=== PATIENT | female | born 1965 | race Caucasian/White ===

== ENCOUNTER 2020-04-15 11:09 | Emergency (ER) | payer OTHER, SELFPAY ==
[2020-04-15 11:31] VITALS: BP 150/80; PULSE 78; RESP 24; TEMP 38.1; O2SAT 99
--- NOTE | 2020-04-15 12:08 | ED.URI ---
HPI - URI/Sore Throat General Chief Complaint: Upper Respiratory Infection Stated Complaint: SINUS/FEVER/SORE THROAT/COUGH/LOW BACK PAIN Time Seen by Provider: 04/15/20 11:32 Source: patient and RN notes reviewed Mode of arrival: ambulatory Limitations: no limitations History of Present Illness HPI Narrative: Patient presents today complaining of 4-day history of congestion, sore throat, cough, chills and sweats, sinus pressure and headache, with decreased sense of taste and low back pain. Denies fever, shortness of breath, loss of smell, nausea, vomiting, diarrhea. She has been taking ibuprofen and cold medication at home with mild relief. She had a COVID-19 test done 3 days ago that was negative. No history of asthma or COPD. She presents today with her son with similar symptoms. MD elicited complaint: cough, sore throat and nasal congestion Related Data Home Medications Medication Instructions Recorded Confirmed No Home Medications 04/15/20 04/15/20 Allergies Allergy/AdvReac Type Severity Reaction Status Date / Time No Known Allergies Allergy Unverified 04/15/20 11:17 Review of Systems Review of Systems: Narrative: CONSTITUTIONAL: Denies body aches, fever. + Chills and sweats EYES: Denies visual changes, redness, or discharge. ENT: Denies rhinorrhea, or otalgia. + Nasal congestion, decreased sense of taste, sinus pressure, sore throat CARDIOVASCULAR: Denies chest pain, palpitations, or edema. RESPIRATORY: Denies dyspnea.+Cough GASTROINTESTINAL: Denies abdominal pain, nausea, vomiting, or diarrhea. GENITOURINARY: Denies dysuria or hematuria. SKIN: Denies rash, itching, or wounds. MUSCULOSKELETAL: Denies joint pain, or myalgia. + Low back pain NEUROLOGIC: Denies numbness, tingling, or weakness. + Headache PSYCH: Denies depression or anxiety. PMFSH Comments At time of signature, I have reviewed and agree with nursing past medical, surgical, social and family history unless otherwise noted. Please see nursing chart for further information. There is no relevant family history pertinent to the presenting complaint Exam Narrative: Exam Narrative: GENERAL: Mildly ill-appearing, well-nourished, and in no acute distress. HEAD: Normocephalic, atraumatic. EYES: EOMI. No redness or drainage. Conjunctivae normal. ENT: Mucous membranes pink and moist. + nasal congestion. No rhinorrhea. TMs normal bilaterally. Throat normal. Uvula midline. NECK: Normal AROM. Supple. Bilateral anterior and left posterior cervical chain lymphadenopathy. CHEST: No respiratory distress. Clear to auscultation. HEART: Regular rate and rhythm. No murmur appreciated. Normal peripheral pulses. EXTREMITIES: Normal range of motion. No edema. SKIN: Warm, dry, no rash. Capillary refill normal. Normal skin turgor. NEURO: No focal deficits. Alert and oriented x3. Gait steady. PSYCH: Normal affect. No signs of depression or anxiety. Course Vital Signs Vital signs: Vital Signs Temperature 100.5 F H 04/15/20 11:31 Pulse Rate 78 04/15/20 11:31 Respiratory Rate 24 H 04/15/20 11:31 Blood Pressure 150/80 H 04/15/20 11:31 Pulse Oximetry 99 04/15/20 11:31 Temperature 100.5 F H 04/15/20 11:31 Pulse Rate 78 04/15/20 11:31 Respiratory Rate 24 H 04/15/20 11:31 Blood Pressure 150/80 H 04/15/20 11:31 Pulse Oximetry 99 04/15/20 11:31 Reviewed. Pt has been instructed to follow up with her PCP regarding her elevated blood pressure today. MDM - URI/Sore Throat MDM Narrative Medical decision making narrative: Patient presents today with symptoms of COVID-19 including loss of taste. Even though patient's rapid Covid test is negative, I feel it very likely that she has COVID-19. Anticipatory guidance has been given as well as instructions for quarantine. Differential Diagnosis Differential diagnosis: Likely upper respiratory infection, otitis media, sinusitis, viral infection, bronchitis, pharyngitis and other (COVID-19, stre
== END 2020-04-15 12:23 | disposition home or self-care (01) ==
PROVIDERS: Emergency Provider Nurse Practitioner; PCP Internal Medicine
DX: U07.1 COVID-19 (principal); G47.30 Sleep apnea, unspecified
CPT/HCPCS: 87426; 99213; C9803; G0463

== ENCOUNTER 2021-09-09 16:26 | Emergency (ER) | payer OTHER, SELFPAY ==
[2021-09-09 16:34] VITALS: BP 160/83; PULSE 95; RESP 16; TEMP 37.7; O2SAT 99
--- NOTE | 2021-09-09 16:50 | ED.URI ---
HPI - URI/Sore Throat General Chief Complaint: Upper Respiratory Infection Stated Complaint: fever,cough,body aches History of Present Illness HPI Narrative: Patient is a 55-year-old female who presents to the urgent care via POV for evaluation of viral symptoms that have been present since this morning. Patient reports experiencing body aches, frontal headache, low back pain, productive cough, bilateral ear pain, and swollen glands. She reports her sputum production is small in quantity and clear in color. DayQuil provides some relief. Being awake and moving around worsens symptoms. She reports her son was ill a few days ago with nausea, vomiting, and diarrhea although she denies the symptoms. Patient is fully vaccinated against COVID although not influenza. Related Data Allergies Allergy/AdvReac Type Severity Reaction Status Date / Time No Known Allergies Allergy Verified 09/09/21 16:34 Review of Systems Review of Systems: Denies history of COPD, bronchitis, asthma, and pneumonia. Denies current/past tobacco use. Pertinent negatives: fever, sweats, chills, change in appetite, fatigue, skin color changes, severe persistent headaches, nasal congestion/discharge, dizziness, sinus problems, ear drainage, chest pain, heart murmurs, heart palpitations, shortness of breath, wheezing, cyanosis, hemoptysis, hoarseness, orthopnea, drooling, difficulty swallowing, pleuritic pain, voice changes PMFSH Comments I have reviewed and agree with the patient's past medical, surgical, social, and family hx as documented by the RN. There is no relevant family history pertinent to the presenting complaint. Exam Narrative: GENERAL: Well-appearing, well-nourished, and in no acute distress. Appears uncomfortable. HEAD: Normocephalic, atraumatic. No sinus tenderness or facial swelling appreciated. EYES: PERRLA and EOMI. No evidence of erythema, swelling, or drainage. ENT: Bilateral external ears and ear canals normal. Bilateral TMs are retracted otherwise normal. No TM perforation. Nares clear, no rhinorrhea or epistaxis. Bilateral turbinates without erythema/ swelling. Mucous membranes moist and pink. Uvula is midline. Mild erythema and subtle swelling noted to posterior pharynx otherwise normal. Breath odor and voice normal. NECK: Supple. No Lymphadenopathy or nuchal rigidity appreciated. CHEST: Bilateral lung wallace are clear to auscultation. No respiratory distress. No evidence of cough or pleuritic cp upon examination. HEART: Regular rate and rhythm. No murmur, gallop, or rub heard. EXTREMITIES: Normal range of motion. No edema. SKIN: Warm, dry, no rash. NEURO: No focal deficits. Alert and oriented x3. Course Course Level of Care: Express Care Visit Vital Signs Vital signs: Vital Signs Temperature 99.9 F H 09/09/21 16:34 Pulse Rate 95 09/09/21 16:34 Respiratory Rate 16 09/09/21 16:34 Blood Pressure 160/83 H 09/09/21 16:34 Pulse Oximetry 99 09/09/21 16:34 Temperature 99.9 F H 09/09/21 16:34 Pulse Rate 95 09/09/21 16:34 Respiratory Rate 16 09/09/21 16:34 Blood Pressure 160/83 H 09/09/21 16:34 Pulse Oximetry 99 09/09/21 16:34 MDM - URI/Sore Throat Differential Diagnosis Differential diagnosis: Likely upper respiratory infection, otitis media, sinusitis, viral infection, bronchitis, influenza, pharyngitis and other Lab Data Lab results narrative: Rapid strep negative; rapid COVID-negative Critical Care Time Critical Care Time Critical Care Time: No Discharge Plan Discharge Clinical Impression: Upper respiratory infection Patient Disposition: Home, Self-Care Condition: Stable Instructions: Upper Respiratory Infection (ED) Additional Instructions: See discharge instructions for detailed information. Rapid strep and COVID test negative Take all prescription medication only as prescribed. No [id number] anti-inflammatory such as Aleve, ibuprofen, Advil while t
== END 2021-09-09 17:06 | disposition home or self-care (01) ==
PROVIDERS: Emergency Provider Nurse Practitioner Family; PCP Internal Medicine
DX: J06.9 Acute upper respiratory infection, unspecified (principal); Z20.822 Contact with and (suspected) exposure to COVID-19; G47.30 Sleep apnea, unspecified
CPT/HCPCS: 87081; 87426; 87880; 99213; C9803; G0463

== ENCOUNTER 2021-10-25 16:56 | Emergency (ER) | payer OTHER, SELFPAY ==
--- NOTE | ~2021-10-25 | CT_ITS ---
EXAMINATION: CT abdomen pelvis w con DATE: 10/25/2021 19:03 INDICATION: Right upper quadrant pain. Lump on vagina. TECHNIQUE: Computed tomography (CT) of the abdomen and pelvis was performed with 100 cc Omnipaque 350 intravenous contrast. The dose-length product was 1522.22 mGy-cm. Automated exposure control and ite rative reconstruction technique were employed. COMPARISON: None. FINDINGS: Lung bases unremarkable. Heart size normal. No significant pleural or pericardial effusion. Small hiatal hernia. No significant vascular abnormality. No lymphadenopathy. There is an enlarged f ibroid uterus. There is a 1.9 cm Bartholin cysts located at the vaginal introitus. No lymphadenopathy. The liver, spleen, pancreas, right adrenal gland and kidneys are unremarkable. Th ere is a 1.6 cm left adrenal mass likely benign adenoma. Gallbladder is present. Nonobstructive bowel gas pattern. Normal appendix. Nonobstructive bowel pattern. No abnormal pelvic masses or fluid colle ctions. No acute osseous abnormality. No free air or free fluid. IMPRESSION: 1. No acute abdominal abnormality. 2: Bartholin cyst measuring 1.9 cm located at the right vaginal introitus. 3: Enlarged fibroid uterus. Reviewed, dictated and finalized at location A.
[2021-10-25 17:02] VITALS: BP 151/99; PULSE 98; RESP 20; TEMP 36.8; O2SAT 100
--- NOTE | 2021-10-25 18:29 | ED.GENADULT ---
HPI - General Adult General Chief complaint: Unspecified Stated complaint: back and pelvic pain Time Seen by Provider: 10/25/21 18:07 Source: patient Mode of arrival: ambulatory Limitations: no limitations History of Present Illness HPI narrative: Patient is a 55 y/o female who presents to the ED with c/o multiple complaints. Patient reports she has had lower back pain for the past 1 month. She denies any known injury or recent heavy lifting. She has been taking ibuprofen for this and states pain is improved overall. She also reports having intermittent lower abdominal cramping and pain in her right upper quadrant for the last 1 month. Pain comes and goes, mild in nature. No pain today. Yesterday, while patient was taking a shower, she noticed a small lump in her right lower labia. No significant pain, just feels slightly swollen. She states she had 2 aunts with history of vaginal and rectal cancer, which made her concerned. She states she mostly came to the ER today for evaluation of the vaginal lump. She was unable to make an appointment with her [employer]. Denies nausea, vomiting, diarrhea, constipation, rectal bleeding, vaginal bleeding, dysuria, hematuria, fever, chills. Related Data Home Medications Medication Instructions Recorded Confirmed No Home Medications 10/25/21 10/25/21 Allergies Allergy/AdvReac Type Severity Reaction Status Date / Time No Known Allergies Allergy Verified 09/09/21 16:34 Review of Systems Review of Systems: CONSTITUTIONAL: Denies fever, chills, or sweats. CARDIOVASCULAR: Denies chest pain. RESPIRATORY: Denies dyspnea. GASTROINTESTINAL: Reports lower ABD cramping, RUQ pain. Denies constipation, rectal bleeding, nausea, vomiting, or diarrhea. GENITOURINARY: Reports lump to R lower vaginal region. Denies vaginal bleeding, dysuria, or hematuria. MUSCULOSKELETAL: Reports lower back pain. All systems reviewed & are unremarkable except as noted in HPI and below PMFSH Past Medical History Medical History No pertinent past medical history Surgical History Surgical History (Updated 10/25/21 @ 18:59 by Katy Carmona PA-C) History of section Social History Social History (Updated 10/25/21 @ 18:59 by Katy N. Skau, PA-C) Smoking status: Never smoker Exam Narrative: GENERAL: Well appearing, well-nourished, non-toxic, in no acute distress. HEAD: Normocephalic, atraumatic. NECK: Supple. No adenopathy, no masses. RESPIRATORY: Airway patent, respirations nonlabored. Clear to auscultation bilaterally, no rales, rhonchi, wheezing. CARDIOVASCULAR: Regular rate and rhythm without murmurs, rubs, or gallops. Peripheral pulses 2+ and equal bilaterally. ABDOMINAL: Soft, diffuse tenderness in lower abdomen, tenderness in RUQ and epigastrium, nondistended, no hepatosplenomegaly. Normoactive BS. PELVIC: Normal external genitalia. Small pea-sized lump in R lower inner vulvar region, in the area of Bartholin's gland. Minimally tender to palpation. No significant fluctuance appreciated. No drainage. No vaginal discharge. No other genital lesions. MUSCULOSKELETAL: Moves all extremities. Strength/ROM intact without gross deformities. Minimal lower lumbar tenderness bilaterally, no bony deformities or palpable step-offs. SKIN: Warm, dry, normal color. No rashes. NEURO: A&O X3. Speech clear. Cranial nerves II-XII grossly intact. Steady gait. No ataxic movements. PSYCHIATRIC: Appropriate mood and affect. Normal interaction. Course Vital Signs Vital signs: Vital Signs Temperature 98.2 F 10/25/21 17:02 Pulse Rate 98 10/25/21 17:02 Respiratory Rate 20 10/25/21 17:02 Blood Pressure 151/99 H 10/25/21 17:02 Pulse Oximetry 100 10/25/21 17:02 Oxygen Delivery Room Air 10/25/21 17:02 Temperature 98.2 F 10/25/21 17:02 Pulse Rate 72 10/25/21 20:11 Respiratory Rate 18 10/25/21 20:11 Blood Pressure 154/70 H 10/25/21
[2021-10-25 18:37] LABS: Basophils Absolute Auto 0.1 K/mm3 (0.0-0.1); Basophils Percent Auto 0.7 % (0.2-1.2); Eosinophils Absolute Auto 0.3 K/mm3 (0-0.3); Eosinophils Percent Auto 2.5 % (0-4.4); Hematocrit 42.9 % (37.0-47.0); Hemoglobin 14.3 g/dL (12.0-15.0); Immature Granulocyte Absolute 0.04 K/mm3 (0.00-0.031); Immature Granulocyte Percent A 0.3 % (0-0.5); Lymphocytes Absolute Auto 3.19 K/mm3 (0.9-3.2); Lymphocytes Percent Auto 26.3 % (18.3-44.2); Mean Corpuscular HGB Conc 33.3 g/dl (32-36); Mean Corpuscular Hemoglobin 28.9 pg (26-34); Mean Corpuscular Volume 86.7 fl (80-100); Mean Platelet Volume 9.8 fl (7.4-10.4); Monocytes Absolute Auto 0.8 K/mm3 (0.1-0.6); Monocytes Percent Auto 6.4 % (2.6-8.5); Neutrophils Absolute Auto 7.7 K/mm3 (1.3-6.7); Neutrophils Percent Auto 63.8 % (45.5-73.1); Platelet Count Result 346 k/mm3 (150-375); Red Blood Count 4.95 M/mm3 (4.2-5.4); Red Cell Distribution Width 13.2 % (11.5-14.5); White Blood Count 12.1 K/mm3 (4.5-10.0)
[2021-10-25 18:38] LABS: Appearance Urine Clear (Clear); Bilirubin Urine Negative (Negative); Blood Urine 2+ (Negative); Color Urine Yellow (Yellow); Glucose Urine UA Negative (Negative); Ketones Urine 1+ mg/dL (Negative); Leukocyte Esterase Ur Negative LEU/UL (Negative); Nitrate Urine Negative (Negative); Protein Urine Negative (Negative); Specific Grav Ur >= 1.030 (1.001-1.035); Urobilinogen Urine 0.2 mg/dL (<2.0)
[2021-10-25 18:47] LABS: Alanine Aminotransferase 18 U/L (6-35); Alkaline Phosphatase 69 U/L (38-126); Anion Gap 12 mmol/L (8-16); Aspartate Amino Transferase 23 U/L (14-36); Bilirubin,Total 0.4 mg/dL (0.2-1.3); Blood Urea Nitrogen 15 mg/dL (7-17); Calcium 9.7 mg/dL (8.4-10.2); Carbon Dioxide 24 mmol/L (22-30); Chloride 100 mmol/L (98-107); Estimated Glomerular Filt Rate > 60; Glucose 143 mg/dL (65-110); Lipase 76 U/L (23-300); Potassium 3.6 mmol/L (3.4-5.0); Sodium 136 mmol/L (137-145)
[2021-10-25 18:59] LABS: Mucus Urine Rare /lpf; RBC Urine 0-2 /hpf (0-2); Squamous Epithelial Cell Urine Few /hpf (Few); WBC Urine 0-3 /hpf
[2021-10-25 19:01] LABS: Add Urine Microscopic? YES
[2021-10-25 20:11] VITALS: BP 154/70; PULSE 72; RESP 18; O2SAT 96
== END 2021-10-25 21:58 | disposition home or self-care (01) ==
PROVIDERS: Physician Assistant; Emergency Provider Emergency Medicine; PCP Internal Medicine
DX: M54.50 Low back pain, unspecified (principal); N75.0 Cyst of Bartholin's gland; D25.9 Leiomyoma of uterus, unspecified
CPT/HCPCS: 36415; 74177; 80053; 81001; 83690; 85025; 99284; Q9967

== ENCOUNTER → 2021-11-05 14:57 | Outpatient (CLI) | payer OTHER, SELFPAY ==
--- NOTE | ~2021-11-05 | US_ITS ---
EXAMINATION: US pelvic complete w TV DATE: 11/05/2021 15:27 INDICATION: Excessive and frequent menstruation TECHNIQUE: Multiple transabdominal and endovaginal sonographic images of the pelvis were obtained. COMPARISON: CT, 10/25/2021 FINDINGS: The uterus measures 13.6 x 10.0 x 8.4 cm. There are multiple uterine fibroids. The largest is an intramural fibroid in the posterior uterine body measuring 4.1 x 3.5 x 4.0 cm. The endometrial complex measures 8 mm. The right ovary is not visualized however no right adnexal abnormality is seen . The left ovary measures 3.3 x 2.0 x 2.0 cm. There is normal vascular flow in the left ovary. There is no free fluid in the pelvis. IMPRESSION: 1. Enlarged fibroid uterus. Reviewed, dictated and finalized at location D. IMPRESSION: 1. Enlarged fibroid uterus.
== END ==
PROVIDERS: PCP Nurse Practitioner; Visit Provider Nurse Practitioner
DX: N92.0 Excessive and frequent menstruation with regular cycle (principal); D25.9 Leiomyoma of uterus, unspecified
CPT/HCPCS: 76830; 76856

== ENCOUNTER 2021-12-17 01:58 | Day surgery (SDC) | payer OTHER, SELFPAY ==
[2021-12-13 09:55] VITALS: BMI 36.3
--- NOTE | 2021-12-13 10:02 | PC.NURSE ---
Report to the Outpatient Waiting Room, entrance under the green pavilion located off [facility], at time 1230 on date 12/17/21. OR Time: 1430. Time changes happen often and if your time is changed the preop area will call you the afternoon before. - You and your visitor will be asked to self-screen and do not enter if you have any COVID symptoms. - Only one visitor and NO children visitors are allowed at this time. - The patient visitor is requested to leave or wait in car when not with patient due to restrictions. - A mask is required within the hospital. Patients may have clear liquids (water, carbonated beverages, clear teas, apple juice) until 3 hours prior to surgery with a maximum of 20 ounces. - No food from midnight until time of surgery Take the following medications with a SIP of water the morning of surgery: NONE Medications to discontinue per physician: VITAMINS Date to take last dose: 12/13/21 Please no make-up, nail frisian, hairspray, perfume, deodorant, or body powder the day of surgery. No jewelry (including any body piercings) or valuables the day of surgery, leave them at home. Please take a shower or bath the night before, or the morning of, surgery with an antibacterial soap. Wear comfortable, loose fitting clothing. - Jewelry must be removed prior to entering the operating room. Rings and piercings that are not removed may be cut off. - The hospital will not accept responsibility for valuables. - Please leave all valuables, including medications, at home the day of surgery. If you are going home after surgery, a licensed petroleum transport driver must drive you home. - NO public transportation without another adult. - We recommend that an adult stay with you for 24 hours following discharge. - We also recommend that you do not drive, make important decision, drink alcoholic beverages, or take any drugs that were not prescribed by your health care provider for at least 24 hours after your discharge time. Follow any additional instructions given to you from your surgeon. If you or anyone in your household have experienced Covid symptoms in the past week, please notify your surgeon or the nurse liaison at the phone number below for possible testing. Telephone instructions given to PT - RAMESH JOHNSON and asked if any additional questions and then verbalized understanding. Patient advised to call surgeon office or pre surgery nurse liaison [phone] if any additional questions.
--- NOTE | 2021-12-17 09:15 | WPDHPUPDATE1 ---
History and Physical Update Update Date/Time: 12/17/21 09:15 History and Physical has been reviewed, including an updated exam of the patient. There are NO changes in the patient's condition. Risks, benefits, and alternatives have been discussed and questions answered. Patient agrees to proceed with procedure.
--- NOTE | 2021-12-17 09:16 | P.HP_ITS ---
History of Present Illness History of Present Illness Consent: Risks, benefits, and alternatives have been discussed and questions answered. Patient agrees to proceed with procedure. Chief complaint: Menorrhagia, Fibroids Narrative: Lisbeth Veras is a 56 year old female with menorrhagia and fibroids. The patient's cycles last for approximately 5 days of heavy bleeding followed by prolonged spotting. She is bleeding through a pad and a tampon. Pelvic ult rasound reveals uterus to be enlarged at 14cm with multiple fibroids. The patient was recommended to proceed with D&C hysteroscopy and possible MyoSure. Risks of infection, bleeding, infection and fluid imbalance were reviewed. Possible pathology was reviewed. Patient voices understanding and agrees to proceed. Review of Systems Gastrointestinal: Gastrointestinal: Reports abdominal pain Musculoskeletal: Musculoskeletal: Reports back pain PMFSH Past Medical History Medical History (Updated 12/17/21 @ 09:20 by Denia Greenberg MD) No pertinent past medical history Surgical History Surgical History (Updated 12/17/21 @ 09:19 by Denia Greenberg MD) History of section X2 History of hemorrhoidectomy History of tonsillectomy Social History Social History (Updated 10/25/21 @ 18:59 by Katy Wilcox PA-C) Smoking status: Never smoker Alcohol intake: never Substance use: never Substance use type: does not use Living arrangements: with family Spiritual care concerns: No Meds Home Medications and Allergies Home Medications Medication Instructions Recorded Confirmed Type multivitamin 1 tablet PO DAILY 12/13/21 12/13/21 History Allergies Allergy/AdvReac Type Severity Reaction Status Date / Time No Known Allergies Allergy Verified 12/13/21 09:55 Exam Const: General: healthy appearing and alert Orientation/consciousness: patient oriented x3 GI: GI Palp: Yes Soft to palpation, No Tenderness to palpation present (GI) and No Palpable mass present : External Female Exam: normal external appearance Speculum Exam - Vagina: normal appearance of the vagina and normal vaginal discharge Speculum Exam - Cervix: normal appearance of the cervix Bimanual exam- vagina & uterus: consistency normal and enlarged (14cm) Bimanual Exam- Adnexa, other: normal adnexae and No adnexal tenderness Neuro: General: patient oriented x3 Assessment and Plan Assessment and plan (1) Menorrhagia: Code(s): N92.0 - Excessive and frequent menstruation with regular cycle Status: Acute Assessment and Plan: Plan to proceed with D&C hysteroscopy
[2021-12-17] MEDS: ACETAMINOPHEN 500 MG TABLET 1000 MG PO (12:57)
[2021-12-17] MEDS: LACTATED RINGERS 1,000 ML 30 ML IV CONT (13:09)
[2021-12-17 13:13] VITALS: BP 149/79; PULSE 82; RESP 16; TEMP 37.7; O2SAT 97
--- NOTE | 2021-12-17 13:51 | P.PNAN_ITS ---
Anes - Initial Pre Proc Eval Procedure: Operation Date: 12/17/21 14:30 Proposed Procedures p Hysteroscopy Dilation and Curettage - Denia Greenberg MD Date/Time: 12/17/21 13:51 Surgeon: Denia Greenberg MD Pre Op Diagnosis: Menorrhagia, Fibroids Patient Data Age: 56 Gender: F Height: 1.68 m Weight: 109 kg Last Vital Signs Temp 37.7 C H 12/17/21 13:13 Pulse 82 12/17/21 13:13 Resp 16 12/17/21 13:13 BP 149/79 H 12/17/21 13:13 Pulse Ox 97 12/17/21 13:13 O2 Del Method Room Air 12/17/21 13:13 Allergies Allergy/AdvReac Type Severity Reaction Status Date / Time No Known Allergies Allergy Verified 12/17/21 12:49 Home Medications Medication Instructions Recorded Confirmed Type multivitamin 1 tablet PO DAILY 12/13/21 12/17/21 History Patient hx anesthesia problems: none Family hx anesthesia problems: none Results Review: All pre-operative results and documents have been reviewed as part of the pre- operative evaluation. [facility] Past Medical History Medical History No pertinent past medical history Surgical History Surgical History History of section X2 History of hemorrhoidectomy History of tonsillectomy Social History Social History Smoking status: Never smoker Alcohol intake: never Substance use: never Substance use type: does not use Living arrangements: with family Spiritual care concerns: No Anes - Eval Final PreProcedure Day of Procedure 12/17/21 13:51 Patient weight: obese Heart: regular rate and rhythm Lungs: clear to auscultation Airway: Mallampati scale class II Neurological: alert and oriented Last oral intake: >/= 8 hours ASA classification: II Emergent: no Anesthetic plan: proceed Anesthesia type and monitoring: general GIVS and standard monitoring Results Review: All pre-operative results and documents have been reviewed as part of the pre- operative evaluation. Informed Consent: The patient's anesthetic plan and its attendant risks and benefits were discussed with the patient/family/POA. Questions were solicited and answers provided to the satisfaction of the patient/family/POA.
[2021-12-17] MEDS: LIDOCAINE HCL 1% PF 30 ML VIAL 10 ML INFILTRATE (14:11)
[2021-12-17] MEDS: KETOROLAC 30 MG/ML VIAL (*BKC) IV PUSH (14:15)
--- NOTE | 2021-12-17 14:34 | W.PM.PROC2 ---
Procedure Note - Detailed Date of Procedure 12/17/21 Pre-op Diagnosis Menorrhagia, Fibroids Post-op Diagnosis Same Procedure Performed D&C hysteroscopy with MyoSure resection of fibroid and thickened endometrium Surgeon Denia Greenberg MD Anesthesia MAC and Local Findings Uterus sounds to 11cm. The lining is generally thickened with no discrete polyps. Once the thickened lining is removed there is noted a fibroid at the right lateral sidewall. Description of Procedure The patient is taken to the operating room and placed under anesthesia in the dorsal lithotomy position. Once anesthesia was deemed adequate she was prepped and draped in the usual sterile fashion. [place] speculum was placed in the vagina and the cervix grasped on the anterior lip with a tenaculum. The cervix is injected in each quadrant with 1% lidocaine. The uterus sounds to 11cm. The cervix is serially dilated with [place] was to an 8. The MyoSure hysteroscope was placed with the above-stated findings. The MyoSure device is opened and placed and the thickened endometrium removed. The fibroid is then able to be visualized and the right lateral fibroid is removed. The endometrium appears smooth at the time of the case ending. The hysteroscope was then removed and the sharp curette used to curette the endometrium until a good uterine cry was noted in all areas. Fluid input 4500cc fluid output 4000cc. All instruments are removed. Sponge, needle, and instrument counts are correct per the OR staff. The patient is awakened from anesthesia and taken to recovery in stable condition. Estimated Blood Loss 5 Drains No Packing No Pathology Yes (Endometrial shavings and curettings) Complications No immediate complications Condition Stable Disposition PACU
[2021-12-17 14:38] VITALS: BP 134/75; PULSE 67; RESP 16; O2SAT 100
[2021-12-17 15:05] VITALS: BP 143/80; PULSE 65; RESP 16; O2SAT 99
[2021-12-17 15:30] VITALS: BP 153/76; PULSE 63; RESP 16
== END 2021-12-17 15:38 | disposition home or self-care (01) ==
PROVIDERS: PCP Internal Medicine; Visit Provider Obstetrics & Gynecology Gynecology
PROC: 0U5B8ZZ Destruction of Endometrium, Via Natural or Artificial Opening Endoscopic (ICD-10-PCS; CPT 58563; principal; 2021-12-17 14:30)
DX: N92.0 Excessive and frequent menstruation with regular cycle (principal); D25.9 Leiomyoma of uterus, unspecified
CPT/HCPCS: 58561; 88305; A9270; J1100; J1885; J2250; J2405; J2704; J7030; J7120

== ENCOUNTER → 2022-06-10 14:09 | Outpatient (CLI) | payer OTHER, SELFPAY ==
--- NOTE | ~2022-06-10 | US_ITS ---
US right upper quadrant DATE: 06/10/2022 14:27 INDICATION: Right upper quadrant abdominal pain TECHNIQUE: Real-time imaging and Doppler analysis COMPARISON: 10/25/2021 CT abdomen pelvis FINDINGS: No hepatic or pancreatic space-occupying mass lesion is evident. Normal hepatopedal portal venous flow direction. No evidence of gallstones or gallbladder wall thickening. No abnormal perichol ecystic fluid collection. Negative sonographic Heath's sign. The common bile duct measures 4.4 mm, n ormal. IMPRESSION: Negative Reviewed, dictated and finalized at Location A. Reviewed, dictated and finalized at location B. IMPRESSION: Negative
== END ==
PROVIDERS: PCP Internal Medicine; Visit Provider Internal Medicine
DX: R10.9 Unspecified abdominal pain (principal)
CPT/HCPCS: 76705

== ENCOUNTER → 2022-06-21 10:21 | Outpatient (CLI) | payer OTHER, SELFPAY ==
--- NOTE | ~2022-06-21 | CT_ITS ---
EXAMINATION: CT abdomen wo con DATE: 06/21/2022 10:41 INDICATION: Left adrenal mass. TECHNIQUE: Computed tomography (CT) of the abdomen was performed without intravenous contrast. Automa matthew exposure control and iterative reconstruction technique were employed. The dose-length product wa s 662.04 mGy-cm. COMPARISON: CT dated 10/25/2021 FINDINGS: Lung bases are clear. Heart size is normal. No pericardial or pleural effusion. Small sliding-type hi atal hernia. Liver, gallbladder, spleen, pancreas, right adrenal gland and bilateral kidneys are norm al. No significant change in a 1.2 cm low density left adrenal adenoma. Visualized portion of the bow els including the appendix are normal. Partially visualized 2.2 cm right ovarian cyst/follicle. No pa thologically enlarged abdominal or pelvic lymphadenopathy. Mild to moderate lower thoracic spondylosi s. IMPRESSION: 1. No significant change in a 1.2 cm low-density left adrenal adenoma. Reviewed, dictated and finalized at location A.
== END ==
PROVIDERS: PCP Internal Medicine; Visit Provider Nurse Practitioner Adult Health
DX: D35.02 Benign neoplasm of left adrenal gland (principal); E27.8 Other specified disorders of adrenal gland
CPT/HCPCS: 74150

== ENCOUNTER 2022-11-25 01:53 | Day surgery (SDC) | payer OTHER, SELFPAY ==
[2022-11-08 15:06] VITALS: BMI 38.7
--- NOTE | 2022-11-22 15:49 | PM.HPGS ---
History of Present Illness History of Present Illness Consent: Risks, benefits, and alternatives have been discussed and questions answered. Patient agrees to proceed with procedure. Chief complaint: neoplasm screening Narrative: Lisbeth Veras is a 56 year old female Referred for colon cancer screening. Review of Systems Review of Systems: All systems reviewed & are unremarkable except as noted in HPI and below PMFSH Past Medical History Medical History Fibroid Hypertension MARKOS (obstructive sleep apnea) Surgical History Surgical History History of section X2 History of hemorrhoidectomy History of tonsillectomy Social History Social History Smoking status: Never smoker Alcohol intake: never Substance use: never Substance use type: does not use Living arrangements: with family Spiritual care concerns: No Meds Home Medications and Allergies Home Medications Medication Instructions Recorded Confirmed Type multivitamin 1 tablet PO DAILY 12/13/21 11/08/22 History ferrous sulfate 325 mg (65 mg 325 mg PO DAILY 11/08/22 11/08/22 History iron) tablet lisinopril 20 mg tablet 20 mg PO DAILY 11/08/22 11/08/22 History magnesium 500 mg tablet 500 mg PO DAILY 11/08/22 11/08/22 History psyllium husk 0.52 gram capsule 0.52 g PO DAILY 11/08/22 11/08/22 History (Fiber (psyllium husk)) Allergies Allergy/AdvReac Type Severity Reaction Status Date / Time No Known Allergies Allergy Verified 11/25/22 12:27 Exam Const: General: alert Orientation/consciousness: patient oriented x3 Resp: Auscultation: clear to auscultation bilaterally Cardio: Rhythm: regular rhythm GI: Inspection: obesity and visible herniation ( Ventral) GI Palp: Yes Soft to palpation and No Tenderness to palpation present (GI) Neuro: General: patient oriented x3 Assessment and Plan Assessment and plan (1) Colon cancer screening: Code(s): Z12.11 - Encounter for screening for malignant neoplasm of colon Status: Acute Assessment and Plan: Colonoscopy with possible biopsy or polypectomy or cautery or injection of substances.
--- NOTE | 2022-11-25 08:14 | P.PNAN_ITS ---
Anes - Initial Pre Proc Eval Procedure: Operation Date: 11/25/22 13:45 Proposed Procedures p Screening Colonoscopy - Jerry Jones MD Date/Time: 11/25/22 08:14 Surgeon: Jerry Jones MD Pre Op Diagnosis: neoplasm screening Patient Data Age: 56 Gender: F Height: 1.68 m Weight: 109 kg Allergies Allergy/AdvReac Type Severity Reaction Status Date / Time No Known Allergies Allergy Verified 11/25/22 12:27 Home Medications Medication Instructions Recorded Confirmed Type multivitamin 1 tablet PO DAILY 12/13/21 11/08/22 History ferrous sulfate 325 mg (65 mg 325 mg PO DAILY 11/08/22 11/08/22 History iron) tablet lisinopril 20 mg tablet 20 mg PO DAILY 11/08/22 11/08/22 History magnesium 500 mg tablet 500 mg PO DAILY 11/08/22 11/08/22 History psyllium husk 0.52 gram capsule 0.52 g PO DAILY 11/08/22 11/08/22 History (Fiber (psyllium husk)) Patient hx anesthesia problems: none Family hx anesthesia problems: none Results Review: All pre-operative results and documents have been reviewed as part of the pre- operative evaluation. [facility] Past Medical History Medical History (Updated 11/25/22 @ 08:14 by Javier Adler DO) Fibroid Hypertension MARKOS (obstructive sleep apnea) Surgical History Surgical History History of section X2 History of hemorrhoidectomy History of tonsillectomy Social History Social History Smoking status: Never smoker Alcohol intake: never Substance use: never Substance use type: does not use Living arrangements: with family Spiritual care concerns: No Anes - Eval Final PreProcedure Day of Procedure 11/25/22 08:14 Patient weight: obese Heart: regular rate and rhythm Lungs: clear to auscultation Airway: Mallampati scale class II Neurological: alert and oriented Last oral intake: >/= 8 hours ASA classification: III Emergent: no Anesthetic plan: proceed Anesthesia type and monitoring: general GIVS and standard monitoring Results Review: All pre-operative results and documents have been reviewed as part of the pre- operative evaluation. Informed Consent: The patient's anesthetic plan and its attendant risks and benefits were discussed with the patient/family/POA. Questions were solicited and answers provided to the satisfaction of the patient/family/POA.
[2022-11-25 12:28] VITALS: BP 174/84; PULSE 81; RESP 18; TEMP 36.6; O2SAT 96
[2022-11-25] MEDS: LACTATED RINGERS 1,000 ML 150 ML IV CONT (12:40)
[2022-11-25 13:54] VITALS: BP 122/66; PULSE 74; RESP 26; O2SAT 98
[2022-11-25 14:04] VITALS: BP 142/74; PULSE 57; RESP 17; O2SAT 99
[2022-11-25 14:14] VITALS: BP 134/57; PULSE 56; RESP 20; O2SAT 100
== END 2022-11-25 14:22 | disposition home or self-care (01) ==
PROVIDERS: PCP Internal Medicine; Visit Provider Internal Medicine Gastroenterology
PROC: 0DJD8ZZ Inspection of Lower Intestinal Tract, Via Natural or Artificial Opening Endoscopic (ICD-10-PCS; CPT 45378; principal; 2022-11-25 13:45)
DX: Z12.11 Encounter for screening for malignant neoplasm of colon (principal); D12.3 Benign neoplasm of transverse colon; D12.0 Benign neoplasm of cecum; I10 Essential (primary) hypertension; G47.33 Obstructive sleep apnea (adult) (pediatric); E66.9 Obesity, unspecified; Z68.38 Body mass index [BMI] 38.0-38.9, adult
CPT/HCPCS: 45385; 45380; 88305; J2704; J7120

== ENCOUNTER 2023-01-03 10:01 | Outpatient (CLI) | payer OTHER, SELFPAY ==
--- NOTE | 2023-01-03 10:12 | ECG_ITS ---
Measurements Intervals [place] Rate: 58 P: -3 OK: 117 QRS: -6 QRSD: 96 T: 3 QT: 387 QTc: 382 Interpretive Statements SINUS BRADYCARDIA WITH SHORT OK INTERVAL NO PREVIOUS ECG AVAILABLE FOR COMPARISON Electronically Signed On 01-03-2023 13:35:15 CDT by Any Chavez MD
[2023-01-03 10:28] LABS: Hematocrit 40.4 % (37.0-47.0)
== END 2023-01-03 10:02 | disposition home or self-care (01) ==
LOC: ANHSURGERY 10:04
PROVIDERS: PCP Internal Medicine; Visit Provider Obstetrics & Gynecology Gynecology
DX: N92.0 Excessive and frequent menstruation with regular cycle (principal); I10 Essential (primary) hypertension
CPT/HCPCS: 36415; 85014; 85018; 86850; 86900; 86901; 93005

== ENCOUNTER 2023-01-06 03:01 | Day surgery (SDC) | payer OTHER, SELFPAY ==
[2022-12-26 13:03] VITALS: BMI 38.7
--- NOTE | 2022-12-26 13:09 | PC.NURSE ---
Report to the Outpatient Waiting Room, entrance under the green pavilion located off [facility], at time 6:00 on date 01/06/23. Planned Procedure Time: 7:30. Time changes happen often and if your time is changed the preop area will call you the afternoon before. - You and your visitor will be asked to self-screen and do not enter if you have any COVID symptoms. - A mask is optional within the hospital at this time. Patients may have clear liquids (water, carbonated beverages, clear teas, apple juice) until 3 hours prior to surgery (4:30) with a maximum of 20 ounces. - No food from midnight until time of surgery Take the following medications with a SIP of water the morning of surgery: NONE DO NOT STOP ANY OF YOUR OTHER PRESCRIPTION MEDICATIONS PRIOR TO SURGERY ?EXCEPT THE FOLLOWING Medications to discontinue per physician: VITAMINS/SUPPLEMENTS Date to take last dose: 01/02/23 Please no make-up, nail japanese, hairspray, perfume, deodorant, or body powder the day of surgery. No jewelry (including any body piercings) or valuables the day of surgery, leave them at home. Please take a shower or bath the night before, or the morning of, surgery with an antibacterial soap. Wear comfortable, loose fitting clothing. - Jewelry must be removed prior to entering the operating room. Rings and piercings that are not removed may be cut off. - The hospital will not accept responsibility for valuables. - Please leave all valuables, including medications, at home the day of surgery. If you are going home after surgery, a licensed laundry route driver must drive you home. - NO public transportation without another adult if you receive anesthesia. - We recommend that an adult stay with you for 24 hours following discharge. - We also recommend that you do not drive, make important decision, drink alcoholic beverages, or take any drugs that were not prescribed by your health care provider for at least 24 hours after your discharge time. Follow any additional instructions given to you from your surgeon. If you or anyone in your household have experienced Covid symptoms in the past week, please notify your surgeon or the nurse liaison at the phone number below for possible testing. Telephone instructions given to PT - RAMESH JOHNSON and asked if any additional questions and then verbalized understanding. Patient advised to call surgeon office or pre surgery nurse liaison [phone] if any additional questions.
[2023-01-06] VITALS (15 sets, daily range): BP systolic 135–159; BP diastolic 68–84; PULSE 53–71; RESP 13–25; TEMP 36.3–37.1; O2SAT 95–100; BMI 38.3
[2023-01-06] MEDS: LACTATED RINGERS 1,000 ML 30 ML IV CONT ×2 (06:30→09:09)
--- NOTE | 2023-01-06 06:35 | WPDANESEPPF ---
Anes - Initial Pre Proc Eval Procedure: Operation Date: 01/06/23 07:30 Proposed Procedures p Total Abdominal Hysterectomy with Bilateral Salpingectomy - Denia Greenberg MD Date/Time: 01/06/23 06:35 Surgeon: Denia Greenberg MD Pre Op Diagnosis: menorrhagia, fibroids Patient Data Age: 57 Gender: F Height: 1.68 m Weight: 108.9 kg Allergies Allergy/AdvReac Type Severity Reaction Status Date / Time No Known Allergies Allergy Verified 12/26/22 13:02 Home Medications Medication Instructions Recorded Confirmed Type multivitamin 1 tablet PO DAILY 12/13/21 12/26/22 History ferrous sulfate 325 mg (65 mg 325 mg PO DAILY 11/08/22 12/26/22 History iron) tablet lisinopril 20 mg tablet 20 mg PO HS 11/08/22 12/26/22 History magnesium 500 mg tablet 500 mg PO DAILY 11/08/22 12/26/22 History psyllium husk 0.52 gram capsule 0.52 g PO DAILY 11/08/22 12/26/22 History (Fiber (psyllium husk)) Patient hx anesthesia problems: none Family hx anesthesia problems: none Results Review: All pre-operative results and documents have been reviewed as part of the pre-operative evaluation. [facility] Past Medical History Medical History Fibroid Hypertension MARKOS (obstructive sleep apnea) Surgical History Surgical History History of section X2 History of hemorrhoidectomy History of tonsillectomy Social History Social History Smoking status: Never smoker Alcohol intake: never Substance use: never Substance use type: does not use Living arrangements: with family Spiritual care concerns: No Anes - Eval Final PreProcedure Day of Procedure 01/06/23 06:35 Patient weight: obese Heart: regular rate and rhythm Lungs: clear to auscultation Airway: Mallampati scale class II Neurological: alert and oriented Last oral intake: >/= 8 hours ASA classification: III Emergent: no Anesthetic plan: proceed Anesthesia type and monitoring: general ETT and standard monitoring Results Review: All pre-operative results and documents have been reviewed as part of the pre-operative evaluation. Informed Consent: The patient's anesthetic plan and its attendant risks and benefits were discussed with the patient/family/POA. Questions were solicited and answers provided to the satisfaction of the patient/family/POA.
[2023-01-06] MEDS: ACETAMINOPHEN 500 MG TABLET 1000 MG PO (06:44)
[2023-01-06] MEDS: KETOROLAC 15 MG/ML VIAL (*BKC) IV PUSH (06:44)
--- NOTE | 2023-01-06 07:19 | WPDHPUPDATE1 ---
History and Physical Update Update Date/Time: 01/06/23 07:19 History and Physical has been reviewed, including an updated exam of the patient. There are NO changes in the patient's condition. Risks, benefits, and alternatives have been discussed and questions answered. Patient agrees to proceed with procedure.
--- NOTE | 2023-01-06 07:19 | PM.IMHP ---
H&P: HPI History of Present Illness Date/Time: 01/06/23 07:19 Chief Complaint: Menorrhagia with fibroid uterus Narrative: The patient is a 57-year-old 2 para 2 being admitted total abdominal hysterectomy with bilateral salpingectomy. Patient with fibroids known for a long time presented as a new patient approximately a year ago with the onset of menorrhagia patient underwent D&C hysteroscopy with benign findings the patient elected postoperatively to try an IUD for cycle control but this was not successful. Patient was given other options and has elected to proceed with definitive treatment with hysterectomy. Due to the size of the uterus plan is for total abdominal hysterectomy. Patient initially wanted to have her ovaries removed but has since decided to leave them if they appear normal. Risks of surgery including infection, bleeding, injury to internal organs (bowel, bladder, ureters, ovaries), deep vein thrombosis, and anesthesia are reviewed. Patient voices understanding and agrees to proceed. Review of Systems Review of Systems: not repeated day of surgery; patient states no changes in status PMFSH Past Medical History Medical History (Updated 01/06/23 @ 07:23 by Denia Greenberg MD) Hypertension MARKOS (obstructive sleep apnea) Surgical History Surgical History (Updated 01/06/23 @ 07:22 by Denia Greenberg MD) History of section X2 History of hemorrhoidectomy History of hysteroscopy December of 2021 History of tonsillectomy Social History Social History Smoking status: Never smoker Alcohol intake: never Substance use: never Substance use type: does not use Living arrangements: with family Spiritual care concerns: No Meds Home Medications and Allergies Home Medications Medication Instructions Recorded Confirmed Type multivitamin 1 tablet PO DAILY 12/13/21 01/06/23 History ferrous sulfate 325 mg (65 mg 325 mg PO DAILY 11/08/22 01/06/23 History iron) tablet lisinopril 20 mg tablet 20 mg PO HS 11/08/22 12/26/22 History magnesium 500 mg tablet 500 mg PO DAILY 11/08/22 01/06/23 History psyllium husk 0.52 gram capsule 0.52 g PO DAILY 11/08/22 12/26/22 History (Fiber (psyllium husk)) Allergies Allergy/AdvReac Type Severity Reaction Status Date / Time No Known Allergies Allergy Verified 01/06/23 06:54 Vital Signs Vital Signs - 24 hr 01/06/23 06:00 Temperature 98.4 F Pulse Rate 71 Respiratory Rate 16 Blood Pressure 151/84 H Pulse Oximetry 96 Oxygen Delivery Room Air Exam Const: General: healthy appearing and alert Orientation/consciousness: patient oriented x3 Resp: Effort & Inspection: normal respiratory effort Auscultation: clear to auscultation bilaterally GI: GI Palp: Yes Soft to palpation, No Tenderness to palpation present (GI) and No Palpable mass present : External Female Exam: normal external appearance Speculum Exam - Vagina: normal appearance of the vagina and normal vaginal discharge Speculum Exam - Cervix: normal appearance of the cervix Bimanual exam- vagina & uterus: consistency normal and enlarged (Approximately 14 to 15 week size) Bimanual Exam- Adnexa, other: normal adnexae and No adnexal tenderness Neuro: General: patient oriented x3 Assessment and Plan Assessment and plan (1) Fibroid: Code(s): D21.9 - Benign neoplasm of connective and other soft tissue, unspecified Status: Acute (2) Menorrhagia: Code(s): N92.0 - Excessive and frequent menstruation with regular cycle Status: Acute Assessment and Plan: Plan to proceed with total abdominal hysterectomy and bilateral salpingectomy
--- NOTE | 2023-01-06 08:55 | W.PM.PROC2 ---
Procedure Note - Detailed Date of Procedure 01/06/23 Pre-op Diagnosis menorrhagia, fibroids Post-op Diagnosis Same Procedure Performed Total abdominal hysterectomy with bilateral salpingectomy Surgeon Denia Greenberg MD Anesthesia General Findings Enlarged fibroid uterus, normal-appearing tubes and ovaries. Description of Procedure The patient is taken to the operating room and placed under anesthesia in the dorsal supine position. She was prepped and draped in the usual sterile fashion. A Pfannenstiel skin incision was made with a scalpel and carried down to the underlying layer of fascia. The fascia is nicked in the midline and extended laterally using Bell scissors. Bleeding vessels in the subcutaneous tissue were cauterized for hemostasis. The fascia is tented with Ochsner was and dissected off anteriorly and posteriorly. The peritoneum was entered with a large Peon and the incision was extended with direct visualization using Metzenbaum scissors as well as blunt traction. The pelvis is inspected and the above-stated findings are noted. The bowel was packed away using moist laparotomy sponges. The [place] retractor is placed. The uterus is grasped on the cornu with large peans. The round ligaments were doubly ligated with 0 Vicryl, transected, and the anterior leaf of the broad ligament incised meeting in the midline. The utero-ovarian ligament was isolated and a window created in the posterior leaf of the broad ligament. The pedicle was doubly clamped, transected, suture ligated with 0 Vicryl. The fallopian tubes are grasped with a Adela and the included on the proximal side and removed. The uterus is then able to be delivered through the incision and visualization improved. The bladder was dissected off using blunt dissection with a sponge stick. The uterine vessels were skeletonized, clamped, transected, and suture ligated with 0 Vicryl. The cardinal and uterosacral ligaments are serially clamped, transected, and suture ligated with 0 Vicryl. The uterosacral ligaments were tagged for future use. The long handle with a scalpel was used to incise the vaginal cuff anteriorly. Allis clamps were used to grasp the vaginal cuff anteriorly and posteriorly as the specimen is amputated using Brendan scissors. The vaginal cuff was closed using 0 Vicryl in a running locked fashion tying each angle to the ipsilateral uterosacral ligaments. The pelvis is irrigated and noted to be hemostatic. All instruments and sponges are removed. The fascia was closed using 0 Vicryl in a running fashion. Subcutaneous tissues were irrigated and noted to be hemostatic. Skin is closed using 4-0 Vicryl in a subcuticular fashion. Dermaflex was placed over the incision. Sponge, needle, and instrument counts are correct per the OR staff. Patient received Ancef prior to skin incision. Patient is awakened from anesthesia and taken to recovery in stable condition. Estimated Blood Loss 100 Drains Yes (Mcdaniels catheter) Packing No Pathology Yes (Uterus and tubes) Complications No immediate complications Condition Stable Disposition PACU
--- NOTE | 2023-01-06 09:01 | PM.DS ---
DS: Admitting Diagnosis Discharge Date 01/07/23 Admitting Diagnosis Menorrhagia with fibroid uterus DS: Discharge Diagnosis Discharge Diagnosis (1) Status post total abdominal hysterectomy: Code(s): Z90.710 - Acquired absence of both cervix and uterus Status: Acute DS: Summary Hospital Course Hospital Course: At the time of discharge, the patient is tolerating a regular diet, voiding ambulating, and having good pain control. Status at Discharge Functional status at discharge: independent ambulation Overall status at discharge: patient is progressing back to baseline Time Spent with Patient Time attestation: Total time spent providing and/or coordinating discharge services: Time spent: Less than 30 minutes DS: Data Data Completed and Pending Pending studies at discharge: Pending at discharge 01/06/23 08:30 Surgical [PTH] Routine Discharge Plan Discharge Attending physician on discharge: Denia Greenberg Discharging Clinician: Denia Greenberg Anticipated Discharge Date/Time: 01/07/23 07:59 Patient Disposition: Home, Self-Care Activity: may shower, may drive after 2 weeks and pelvic rest Diet: regular Wound Care Instructions: incision open to air Stand Alone Forms: General Discharge Instructions Follow-up/Referrals: Denia Greenberg MD [Physician] - 1 Week (and 6 wk) Discharge Medications: New hydrocodone-acetaminophen 5-325 mg tablet 1 tablet PO Q4H PRN (Reason: pain) Qty: 20 0RF Continued multivitamin Tablet 1 tablet PO DAILY magnesium 500 mg Tablet 500 mg PO DAILY lisinopril 20 mg tablet 20 mg PO HS ferrous sulfate 325 mg (65 mg iron) Tablet 325 mg PO DAILY psyllium husk [Fiber (psyllium husk)] 0.52 gram Capsule 0.52 g PO DAILY Date of admission: 01/06/23 10:31 Primary Care Provider: Jose Alejandro,Kunal Hurst Admitting Provider: Denia Greenberg Attending physician on admission: Denia Greenberg Condition: Stable
[2023-01-06] MEDS: fentaNYL CITRATE INJ (*CRX) 100 MCG/2 ML VIAL 25 MCG IV PUSH ×8 (09:36→09:58)
[2023-01-06] MEDS: HYDROmorphone HCL INJ (*CRX) 1 MG/ML SYR 0.5 MG IV PUSH ×4 (10:15→10:30)
--- NOTE | 2023-01-06 10:40 | PC.NURSE ---
Patient transferred to post room #289 via ( stretcher ). Support person present. Oriented to unit, room, information board, rooming in, admission packet and security measures. Patient verbalizes understanding.
[2023-01-06] MEDS: HYDROcodone/acetaminophen (*CRX) 10-325 MG TABLET 1 TAB PO ×4 (11:00→23:22)
[2023-01-06] MEDS: KETOROLAC 30 MG/ML VIAL (*BKC) IV PUSH (11:07)
[2023-01-06] MEDS: DEXTROSE 5%/LACTATED RINGERS 1,000 ML 125 ML IV CONT ×2 (11:07→19:07)
[2023-01-06] MEDS: ONDANSETRON INJ 4 MG/2 ML VIAL IV PUSH (16:17)
[2023-01-06] MEDS: FENTANYL 600MCG/NS30MLPCA(*CRX 600 MCG/30 ML PCA.VIAL IV CONT (16:39)
[2023-01-06] MEDS: lisinopriL 20 MG TABLET PO (20:48)
[2023-01-06] MEDS: DOCUSATE SODIUM 100 MG CAPSULE PO (20:48)
[2023-01-06] MEDS: IBUPROFEN 600 MG TABLET PO (20:48)
[2023-01-06] MEDS: SIMETHICONE 80 MG TAB.CHEW PO (20:49)
[2023-01-07 04:00] VITALS: BP 130/62; PULSE 62; RESP 18; TEMP 36.9; O2SAT 97
[2023-01-07] MEDS: IBUPROFEN 600 MG TABLET PO (04:03)
[2023-01-07] MEDS: SIMETHICONE 80 MG TAB.CHEW PO (04:03)
[2023-01-07] MEDS: HYDROcodone/acetaminophen (*CRX) 10-325 MG TABLET 1 TAB PO (04:03)
[2023-01-07 05:34] LABS: Basophils Percent Auto 0.2 % (0.2-1.2); Hematocrit 32.6 % (37.0-47.0); Hemoglobin 10.3 g/dL (12.0-15.0); Immature Granulocyte Absolute 0.03 K/mm3 (0.00-0.031); Immature Granulocyte Percent A 0.3 % (0-0.5); Lymphocytes Absolute Auto 1.23 K/mm3 (0.9-3.2); Mean Corpuscular HGB Conc 31.6 g/dl (32-36); Mean Corpuscular Hemoglobin 27.7 pg (26-34); Mean Corpuscular Volume 87.6 fl (80-100); Mean Platelet Volume 11.1 fl (7.4-10.4); Neutrophils Absolute Auto 8.9 K/mm3 (1.3-6.7); Neutrophils Percent Auto 79.5 % (45.5-73.1); Platelet Count Result 215 k/mm3 (150-375); Red Blood Count 3.72 M/mm3 (4.2-5.4); Red Cell Distribution Width 15.5 % (11.5-14.5); White Blood Count 11.2 K/mm3 (4.5-10.0)
[2023-01-07] MEDS: DOCUSATE SODIUM 100 MG CAPSULE PO (06:59)
[2023-01-07] MEDS: HYDROcodone/acetaminophen (*CRX) 5-325 MG TABLET 1 TAB PO (06:59)
--- NOTE | 2023-01-07 07:58 | PM.GYNPNOP ---
ROLL ICER MACHINE - A/P Postoperative Procedures: Procedures Operation Date: 01/06/23 07:30 Actual Procedure Side Surgeon p Total Abdominal Hysterectomy with Bilateral Salpingectomy Bilateral Denia Greenberg MD Postoperative day: 1 Postoperative status: doing well Postoperative plan: routine post-op care and discharge (asks for early dc) Time Spent With Patient Time: Total time spent is greater than 50% in coordination of care (as documented) at patient's floor/unit and/or counseling patient: Time with patient: less than 15 minutes ROLL ICER MACHINE- PN:Subj Post-Op Subjective Date/time seen: 01/07/23 07:58 Subjective: patient reports feeling better and pain is well controlled Exam Narrative: inc c/d/i ROLL ICER MACHINE - PN: Obj Data Vital Signs Vital Signs: Vital Signs - 24 hr 01/06/23 09:09 01/06/23 09:15 01/06/23 09:30 Temperature 98.4 F Pulse Rate 53 L 55 L 56 L Respiratory Rate 20 25 H 20 Blood Pressure 144/77 H 153/73 H 155/79 H Pulse Oximetry 100 100 100 Oxygen Delivery Simple Face Mask Simple Face Mask Simple Face Mask Oxygen Flow Rate 10 10 10 01/06/23 09:45 01/06/23 10:00 01/06/23 10:15 Temperature Pulse Rate 58 L 58 L 59 L Respiratory Rate 17 17 16 Blood Pressure 159/76 H 151/76 H 154/80 H Pulse Oximetry 100 97 100 Oxygen Delivery Simple Face Mask Nasal Cannula Nasal Cannula Oxygen Flow Rate 10 2 2 01/06/23 10:28 01/06/23 10:45 01/06/23 11:20 Temperature 97.4 F L Pulse Rate 63 57 L Respiratory Rate 13 16 Blood Pressure 142/75 H 135/68 Pulse Oximetry 100 100 100 Oxygen Delivery Nasal Cannula Nasal Cannula Oxygen Flow Rate 2 2 01/06/23 11:20 01/06/23 16:20 01/06/23 16:20 Temperature 97.9 F 97.9 F Pulse Rate 67 67 Respiratory Rate 16 16 Blood Pressure 141/78 H 141/78 H Pulse Oximetry 97 97 97 Oxygen Delivery Nasal Cannula Oxygen Flow Rate 1 01/06/23 16:20 01/06/23 19:59 01/06/23 19:59 Temperature 97.9 F 97.8 F Pulse Rate 67 67 67 Respiratory Rate 16 18 18 Blood Pressure 141/78 H 143/78 H Pulse Oximetry 97 97 97 Oxygen Delivery Room Air Oxygen Flow Rate 01/06/23 20:51 01/06/23 21:50 01/06/23 23:30 Temperature 98.7 F Pulse Rate 66 67 Respiratory Rate 18 18 Blood Pressure 156/68 H Pulse Oximetry 98 98 95 Oxygen Delivery CPAP Oxygen Flow Rate 01/06/23 23:30 01/07/23 04:00 01/07/23 04:00 Temperature 98.4 F Pulse Rate 67 62 62 Respiratory Rate 18 18 18 Blood Pressure 130/62 Pulse Oximetry 95 97 97 Oxygen Delivery CPAP CPAP Oxygen Flow Rate Intake/Output Intake/Output: Intake & Output 01/04/23 01/05/23 01/06/23 01/07/23 23:59 23:59 23:59 23:59 Intake Total 3067 200 Output Total 1150 650 Balance 1917 -450 Meds/Results Medications: Active Medications Generic Name Dose Route Start Last Admin Trade Name Freq PRN Reason Stop Dose Admin Acetaminophen 1,000 mg 01/06/23 10:31 Acetaminophen 500 Mg Tablet PO Q6H PRN HEADACHE OR FEVER Hydrocodone Bitart/Acetaminophen 1 tab 01/06/23 10:31 01/07/23 04:03 Hydrocodone/Acetaminophen (*Crx) 10-325 Mg Tablet PO 1 tab Q3H PRN Administration Pain Rated 6 or Greater Hydrocodone Bitart/Acetaminophen 1 tab 01/06/23 10:31 01/07/23 06:59 Hydrocodone/Acetaminophen (*Crx) 5-325 Mg Tablet PO 1 tab Q3H PRN Administration Pain Rated 5 or Less Docusate Sodium 100 mg 01/06/23 21:00 01/07/23 06:59 Docusate Sodium 100 Mg Capsule PO 100 mg Q12H PRN Administration Constipation Fentanyl Citrate 600 mcg in 30 mls @ 0.5 mls/hr 01/06/23 10:31 01/06/23 20:51 Fentanyl 600 Mcg/Ns 30 Ml Business Education Professor IV CONT 0 mcg/hr PRN PRN 0 mls/hr FOOTWEAR STITCHER Management Titration Protocol 10 MCG/HR Ibuprofen 600 mg 01/06/23 10:31 01/07/23 04:03 Ibuprofen 600 Mg Tablet PO 600 mg Q6H PRN Administration Cramping Ketorolac Tromethamine 30 mg 01/06/23 10:31 01/06/23 11:07 Ketorolac 30 Mg/Ml Vial (*[facility]) IV PUSH 01/11/23
[2023-01-07 08:10] VITALS: BP 132/60; PULSE 60; RESP 18; TEMP 36.4; O2SAT 97
--- NOTE | 2023-01-07 09:05 | P.PNAN_ITS ---
Anes - Prog Note Post-Op Date/Time: 01/07/23 09:05 Cardiovascular status: normal Respiratory status: normal Airway patency: baseline Mental status: baseline Post-Op hydration status: normal Vital Signs: Last Vital Signs Temp 36.9 C 01/07/23 04:00 Pulse 62 01/07/23 04:00 Resp 18 01/07/23 04:00 BP 130/62 01/07/23 04:00 Pulse Ox 97 01/07/23 04:00 O2 Del Method CPAP 01/07/23 04:00 O2 Flow Rate 1 01/06/23 16:20 Pain Score (VAS): 2 I/O: Intake & Output 01/06/23 01/07/23 01/07/23 23:59 07:59 15:59 Intake Total 2267 200 Output Total 1150 850 Balance 1117 -650 Laboratory Tests 01/07/23 03:51 01/07/23 03:51 WBC 11.2 H RBC 3.72 L Hgb 10.3 L Hct 32.6 L MCV 87.6 MCH 27.7 MCHC 31.6 L RDW 15.5 H Plt Count 215 MPV 11.1 H Immature Gran % (Auto) 0.3 Neut % (Auto) 79.5 H Lymph % (Auto) 11.0 L [place] % (Auto) 9.0 H Eos % (Auto) 0.0 Baso % (Auto) 0.2 Lymph # (Auto) 1.23 [place] # (Auto) 1.0 H Eos # (Auto) 0.0 Baso # (Auto) 0.0 Abs Immat Gran (auto) 0.03 Absolute Neuts (auto) 8.9 H Absolute Nucleated RBC 0.0 Nucleated RBC % 0.0 Post-procedural complaints: none Patient Feedback: Patient satisfied with anesthetic care.
== END 2023-01-07 11:20 | disposition home or self-care (01) ==
LOC: ANHSURGERY 09:02 → ANHOB2 01-07 08:00
PROVIDERS: PCP Internal Medicine; Visit Provider Obstetrics & Gynecology Gynecology
PROC: 0UT94ZZ Resection of Uterus, Percutaneous Endoscopic Approach (ICD-10-PCS; CPT 58150; principal; 2023-01-06 07:30)
DX: D25.1 Intramural leiomyoma of uterus (principal); D25.0 Submucous leiomyoma of uterus; N80.202 Endometriosis of left fallopian tube, unspecified depth; N80.00 Endometriosis of the uterus, unspecified; N92.0 Excessive and frequent menstruation with regular cycle; N70.11 Chronic salpingitis; N88.8 Other specified noninflammatory disorders of cervix uteri; I10 Essential (primary) hypertension; G47.33 Obstructive sleep apnea (adult) (pediatric); E66.9 Obesity, unspecified; Z68.38 Body mass index [BMI] 38.0-38.9, adult; Z97.5 Presence of (intrauterine) contraceptive device
CPT/HCPCS: 58150; 36415; 85025; 88307; 99199; A9270; J1100; J1170; J1200; J1885; J2250; J2405; J2704; J3010; J7120; J7121; Q9968

== ENCOUNTER 2024-02-20 09:49 | Emergency (ER) | payer OTHER, SELFPAY ==
--- NOTE | ~2024-02-20 | CT_ITS ---
EXAMINATION: CT abdomen pelvis w con DATE: 02/20/2024 11:09 INDICATION: Right upper quadrant abdominal pain. TECHNIQUE: Computed tomography (CT) of the abdomen and pelvis was performed with 100 mL Omnipaque 350 intravenous contrast. Automated exposure control and iterative reconstruction technique were employe d. The dose-length product was 1013.50 mGy-cm. COMPARISON: Ultrasound 06/10/2022, CT abdomen 06/21/22 FINDINGS: The visualized portions of the lung bases demonstrate mild scarring in paraspinal right low er lobe. No pleural effusion. The heart size is normal. No pericardial effusion. There is a small sli ding hiatal hernia. The liver, spleen, and gallbladder are normal. There is a punctate calcification in the tail of the pancreas. Right adrenal gland is normal. There is a 13 mm mass in left adrenal gla nd that measured low attenuation on the prior noncontrast CT, consistent with an adenoma. The kidneys are normal. There are no dilated loops of bowel. The appendix is normal. There are no pathologically enlarged lymph nodes. There is no free intraperitoneal fluid. There is severe lower lumbar spondylos is. There is moderate thoracic spondylosis. IMPRESSION: 1. No etiology for the patient's symptoms. Reviewed, dictated and finalized at location A. T CONTROL AIDE
--- NOTE | ~2024-02-20 | US_ITS ---
US abdomen limited INDICATION: Right upper quadrant pain PROCEDURE: Realtime right upper abdominal ultrasound. COMPARISON: No prior studies for comparison. FINDINGS: Pancreas not well visualized due to bowel gas. Liver echotexture is increased, consistent with fatty infiltration. There is normal directional flow in the portal vein. The gallbladder is normal without stones, gallbladder wall thickening or pericholecystic fluid. Comm on bile duct measures 2.3 mm. No sonographic Heath's sign. Right renal echotexture is unremarkable without hydronephrosis, mass or stone. IMPRESSION: 1: Fatty infiltration of the liver. Reviewed, dictated and finalized at location B. ROOM CLERK
[2024-02-20 09:52] VITALS: BP 118/66; PULSE 81; RESP 16; TEMP 36.5; O2SAT 100
[2024-02-20 10:25] VITALS: BP 111/77; PULSE 78; RESP 16; TEMP 36.7; O2SAT 96
--- NOTE | 2024-02-20 10:44 | ECG_ITS ---
Test Date: 2024-02-20 12:45:01 Measurements Intervals [place] Rate: 69 P: 42 AL: 130 QRS: 2 QRSD: 89 T: 5 QT: 385 QTc: 415 Interpretive Statements SINUS RHYTHM LOW QRS VOLTAGE IN PRECORDIAL LEADS [QRS DEFLECTION < 1.0 mV IN CHEST LEADS] No previous ECG available for comparison Electronically Signed On 02-20-2024 13:03:24 GLASS HANDLER by Alejandrina Santacruz M.D.
--- NOTE | 2024-02-20 10:44 | ED.ABDPAIN ---
HPI - Abdominal Pain General Chief Complaint: Abdominal Pain Stated Complaint: side pain, nauseated Time Seen by Provider: 02/20/24 09:58 Source: patient Mode of arrival: ambulatory Limitations: no limitations History of Present Illness HPI narrative: Patient is a 58-year-old female who presents the ED with report of right upper quadrant abdominal pain. Patient reports having intermittent pain over the last few days. Denies significant aggravating or alleviating factors. Has not taken anything for the pain. Saw her primary care doctor today and was referred to the ED for further evaluation. Patient has been on Wegovy for the past few weeks for weight loss. Concerned for GB issue. Patient reports intermittent nausea and intermittent constipation, did have a bowel movement this morning. Denies vomiting, rectal bleeding, fevers, chest pain, shortness of breath. Related Data Home Medications Medication Instructions Recorded Confirmed multivitamin 1 tablet PO DAILY 12/13/21 01/06/23 ferrous sulfate 325 mg (65 mg 325 mg PO DAILY 11/08/22 01/06/23 iron) tablet lisinopril 20 mg tablet 20 mg PO HS 11/08/22 12/26/22 magnesium 500 mg tablet 500 mg PO DAILY 11/08/22 01/06/23 psyllium husk 0.52 gram capsule 0.52 g PO DAILY 11/08/22 12/26/22 (Fiber (psyllium husk)) Allergies Allergy/AdvReac Type Severity Reaction Status Date / Time No Known Allergies Allergy Verified 02/20/24 09:51 Review of Systems Review of Systems: All systems reviewed & are unremarkable except as noted in HPI. All systems reviewed & are unremarkable except as noted in HPI and below PMFSH Past Medical History Medical History Hypertension MARKOS (obstructive sleep apnea) Surgical History Surgical History History of section X2 History of hemorrhoidectomy History of hysteroscopy December of 2021 History of tonsillectomy Social History Social History Smoking status: Never smoker Alcohol intake: never Substance use: never Substance use type: does not use Living arrangements: with family Spiritual care concerns: No Exam Narrative: GENERAL: Well appearing, obese with BMI of 34.4, non-toxic, in no acute distress. HEAD: Normocephalic, atraumatic. RESPIRATORY: Airway patent, respirations nonlabored. Clear to auscultation bilaterally, no rales, rhonchi, wheezing. CARDIOVASCULAR: Regular rate and rhythm without murmurs, rubs, or gallops. ABDOMINAL: Soft, mild tenderness palpation epigastric region, right upper quadrant, nondistended. Normoactive BS. MUSCULOSKELETAL: Moves all extremities. No gross deformities. SKIN: Warm, dry, normal color. NEURO: A&O X3. Speech clear. PSYCHIATRIC: Appropriate mood and affect. Normal interaction. Course Vital Signs Vital signs: Vital Signs Temperature 97.7 F 02/20/24 09:52 Pulse Rate 81 02/20/24 09:52 Respiratory Rate 16 02/20/24 09:52 Blood Pressure 118/66 02/20/24 09:52 Pulse Oximetry 100 02/20/24 09:52 Oxygen Delivery Room Air 02/20/24 09:52 Temperature 97.8 F 02/20/24 12:49 Pulse Rate 82 02/20/24 12:49 Respiratory Rate 16 02/20/24 12:49 Blood Pressure 118/74 02/20/24 12:49 Pulse Oximetry 100 02/20/24 12:49 Oxygen Delivery Room Air 02/20/24 09:52 MDM - Abdominal Pain MDM Narrative Medical decision making narrative: Patient presented to ED with several day history of right upper quadrant abdominal pain. Intermittent constipation, intermittent nausea. Currently on Wegovy. Vital signs are stable. Patient is afebrile. In no acute distress. She did not want anything for pain. Laboratory studies are unremarkable. No leukocytosis or anemia. Stable electrolytes. Stable LFTs and lipase. Urine without signs of infection. Does show 1+ ketones. CT scan of abdomen pelvis was obtained and unremarkable. No significant abnormalities noted. Right upper quadrant ultrasound was obtained and showing fatty liver, no cholelithiasis. Discussed lab and imaging findings, overall reassuring workup with patient. She did not want anything for pain throughout her ED stay. Discussed possibility of gastroenteritis, gastritis, acid reflux, constipation, musculoskeletal etiology, GI upset related to Wegovy use. She denies any SOB, pleuritic pain, CP, cough, very low suspicion for pulmonary etiology. Patient w/ focal tenderness in upper abdomen. Feel patient is safe for discharge home with close outpatient follow-up. Discussed additional therapies to try at home, Tylenol, ibuprofen. Will prescribe omeprazole, Bentyl for home. Discussed strict return precautions. Patient is in agreement with plan. She feels comfortable with D/C home. Discharged in stable condition. Medical Records Attestation: I reviewed the patient's medical records. Lab Data Attestation: I reviewed the patient's lab results. 02/20/24 10:25 02/20/24 10:25 Labs: Lab Results 02/20/24 Range/Units 10:25 WBC 7.1 (4.5-10.0) K/mm3 RBC 4.80 (4.2-5.4) M/mm3 Hgb 14.5 D (12.0-15.0) g/dL Hct 42.1 (37.0-47.0) % MCV 87.7 (80-100) fl MCH 30.2 (26-34) pg MCHC 34.4 (32-36) g/dl RDW 12.1 (11.5-14.5) % Plt Count 241 (150-375) k/mm3 MPV 10.1 (7.4-10.4) fl Immature Gran % (Auto) 0.4 (0-0.5) % Neut % (Auto) 69.2 (45.5-73.1) % Lymph % (Auto) 22.8 (18.3-44.2) % [place] % (Auto) 5.9 (2.6-8.5) % Eos % (Auto) 1.0 (0-4.4) % Baso % (Auto) 0.7 (0.2-1.2) % Lymph # (Auto) 1.62 (0.9-3.2) K/mm3 [place] # (Auto) 0.4 (0.1-0.6) K/mm3 Eos # (Auto) 0.1 (0-0.3) K/mm3 Baso # (Auto) 0.1 (0.0-0.1) K/mm3 Abs Immat Gran (auto) 0.03 (0.00-0.031) K/mm3 Absolute Neuts (auto) 4.9 (1.3-6.7) K/mm3 Absolute Nucleated RBC 0.000 (0.0-0.012) K/mm3 Nucleated RBC % 0.0 (0.0-0.2) % Sodium 137 (137-145) mmol/L Potassium 3.6 (3.4-5.0) mmol/L Chloride 104 (98-107) mmol/L Carbon Dioxide 25 (22-30) mmol/L Anion Gap 8 (4-12) mmol/L BUN 20 H (7-17) mg/dL Creatinine 0.90 (0.7-1.0) mg/dL Estim Creat Clear Calc 71 ml/min Estimated GFR > 60 (59 - ) Glucose 130 H (65-110) mg/dL Calcium 9.6 (8.4-10.2) mg/dL Total Bilirubin 0.9 (0.2-1.3) mg/dL AST 25 (14-36) U/L ALT 20 (6-35) U/L Alkaline Phosphatase 49 (38-126) U/L Troponin I < 0.012 (0.000-0.034) ng/mL Total Protein 8.0 (6.3-8.2) g/dL Albumin 4.9 (3.5-5.1) g/dL Lipase 97 (23-300) U/L Urine Color Dark yellow (Yellow) Urine Appearance Cloudy H (Clear) Urine pH 5.0 (5.0-9.0) Ur Specific [place] 1.029 (1.001-1.035) Urine Protein Negative (Negative) mg/dL Urine Glucose (UA) Negative (Negative) mg/dL Urine Ketones 1+ H (Negative) mg/dL Ur Blood (Man) Negative (Negative) Urine Nitrate Negative (Negative) Urine Bilirubin Negative (Negative) Urine Urobilinogen 1.0 (<2.0) mg/dL Add Ur Microanalysis Reviewed Leukocyte Esterase Rfl 2+ H (Negative) MERLENE/UL Urine RBC 3-5 H (0-2) /hpf Urine WBC 0-5 (0-3) /hpf Ur Squamous Epith Cells Occasional (Few) /hpf Urine Bacteria None seen /hpf Urine Casts 3-5 Hyaline Casts Present (None) /lpf Urine Mucus Present /lpf Imaging Data Attestation: I personally reviewed and interpreted this imaging study as follows: Radiologist's impression: ITS Impressions Abdomen/Pelvis CT 02/20/24 11:17 IMPRESSION: 1. No etiology for the patient's symptoms. Abdomen Ultrasound 02/20/24 12:43 IMPRESSION: 1: Fatty infiltration of the liver. ECG Data EKG #1: Attestation: I personally reviewed and interpreted this ECG as follows: ECG completion date: 02/20/24 ECG completion time: 12:45 normal rate (69), sinus rhythm and no ST changes Discharge Plan Discharge Clinical Impression: Right sided abdominal pain Patient Disposition: Home, Self-Care Condition: Stable Instructions: Antibiotic Form, Biliary Colic (ED), Abdominal Pain (ED) Additional Instructions: Your workup here was reassuring. Continue Tylenol and ibuprofen as needed for pain. You may also try Bentyl for abdominal discomfort. Recommend taking omeprazole daily for acid reflux suppression. Stay well hydrated. Follow-up with your primary care doctor for further evaluation. Return to the ED if you experience worsening or severe pain, unable to keep down food or drink, rectal bleeding, dark black stools, difficulty urinating, persistent fevers, shortness of breath, chest pain, or any other symptoms of concern. Prescriptions: New omeprazole 10 mg capsule,delayed release(DR/EC) 10 mg PO DAILY Qty: 30 0RF dicyclomine 20 mg tablet 20 mg PO TID PRN (Reason: Abdominal Discomfort) Qty: 15 0RF No Action multivitamin Tablet 1 tablet PO DAILY magnesium 500 mg Tablet 500 mg PO DAILY lisinopril 20 mg tablet 20 mg PO HS ferrous sulfate 325 mg (65 mg iron) Tablet 325 mg PO DAILY psyllium husk [Fiber (psyllium husk)] 0.52 gram Capsule 0.52 g PO DAILY hydrocodone-acetaminophen 5-325 mg tablet 1 tablet PO Q4H PRN (Reason: pain) Qty: 20 0RF Follow-up/Referrals: Jose Alejandro,Kunal Hurst MD [Primary Care Provider] - Time of Disposition: 13:16
[2024-02-20 10:46] LABS: Basophils Absolute Auto 0.1 K/mm3 (0.0-0.1); Basophils Percent Auto 0.7 % (0.2-1.2); Eosinophils Absolute Auto 0.1 K/mm3 (0-0.3); Hematocrit 42.1 % (37.0-47.0); Hemoglobin 14.5 g/dL (12.0-15.0); Immature Granulocyte Absolute 0.03 K/mm3 (0.00-0.031); Immature Granulocyte Percent A 0.4 % (0-0.5); Lymphocytes Absolute Auto 1.62 K/mm3 (0.9-3.2); Lymphocytes Percent Auto 22.8 % (18.3-44.2); Mean Corpuscular HGB Conc 34.4 g/dl (32-36); Mean Corpuscular Hemoglobin 30.2 pg (26-34); Mean Corpuscular Volume 87.7 fl (80-100); Mean Platelet Volume 10.1 fl (7.4-10.4); Monocytes Absolute Auto 0.4 K/mm3 (0.1-0.6); Monocytes Percent Auto 5.9 % (2.6-8.5); Neutrophils Absolute Auto 4.9 K/mm3 (1.3-6.7); Neutrophils Percent Auto 69.2 % (45.5-73.1); Platelet Count Result 241 k/mm3 (150-375); Red Cell Distribution Width 12.1 % (11.5-14.5); White Blood Count 7.1 K/mm3 (4.5-10.0)
[2024-02-20 10:48] LABS: Add Urine Microscopic? YES; Appearance Urine Cloudy (Clear); Bacteria Urine None Seen /hpf; Bilirubin Urine Negative (Negative); Blood Urine Negative (Negative); Color Urine Dark Yellow (Yellow); Glucose Urine UA Negative (Negative); Hyaline Casts Urine Present /lpf; Ketones Urine 1+ mg/dL (Negative); Leukocyte Esterase Ur 2+ LEU/UL (Negative); Mucus Urine Present /lpf; Need Manual Microscopic Reviewed; Nitrate Urine Negative (Negative); Protein Urine Negative (Negative); Specific Grav Ur 1.029 (1.001-1.035); Squamous Epithelial Cell Urine Occasional /hpf (Few); WBC Urine 0-5 /hpf (0-3)
[2024-02-20 10:51] LABS: Alanine Aminotransferase 20 U/L (6-35); Albumin Level 4.9 g/dL (3.5-5.1); Alkaline Phosphatase 49 U/L (38-126); Anion Gap 8 mmol/L (4-12); Aspartate Amino Transferase 25 U/L (14-36); Bilirubin,Total 0.9 mg/dL (0.2-1.3); Blood Urea Nitrogen 20 mg/dL (7-17); Calcium 9.6 mg/dL (8.4-10.2); Carbon Dioxide 25 mmol/L (22-30); Chloride 104 mmol/L (98-107); Estimated CRCL calculation 71 ml/min; Estimated Glomerular Filt Rate > 60; Glucose 130 mg/dL (65-110); Lipase 97 U/L (23-300); Potassium 3.6 mmol/L (3.4-5.0); Sodium 137 mmol/L (137-145)
[2024-02-20 11:00] VITALS: BP 116/78; PULSE 78; RESP 16; TEMP 36.6; O2SAT 100
[2024-02-20 11:14] LABS: Troponin I < 0.012 ng/mL (0.000-0.034)
--- NOTE | 2024-02-20 12:48 | PC.NURSE ---
pt just returned from [place]. Left department approximately [id number]
[2024-02-20 12:49] VITALS: BP 118/74; PULSE 82; RESP 16; TEMP 36.6; O2SAT 100
== END 2024-02-20 13:28 | disposition home or self-care (01) ==
PROVIDERS: Student in an Organized Health Care Education/Training Program; Emergency Provider Physician Assistant; PCP Internal Medicine
DX: R10.11 Right upper quadrant pain (principal); I10 Essential (primary) hypertension; G47.33 Obstructive sleep apnea (adult) (pediatric)
CPT/HCPCS: 36415; 74177; 76705; 80053; 81001; 83690; 84484; 85025; 87086; 93005; 99284; Q9967

== ENCOUNTER 2025-01-10 08:39 | Outpatient (CLI) | payer OTHER, SELFPAY ==
--- NOTE | ~2025-01-10 | MM_ITS ---
EXAMINATION: MM screening reese BI w robyn HISTORY: Screening TECHNIQUE: Craniocaudal and mediolateral oblique 3-D tomosynthesis images were obtained and synthetic 2-D images were generated. CAD analysis was submitted and interpreted. COMPARISON: No prior mammogram is available for comparison at this institution. BREAST PARENCHYMAL COMPOSITION: Not dense: There are scattered areas of fibroglandular density. FINDINGS: There is no evidence of suspicious mass, calcification, or architectural distortion to suggest malignancy in either breast. There has been no suspicious interval change. IMPRESSION: 1. No mammographic evidence of malignancy. 2. Recommend routine screening mammography in one year. BI-RADS Category 1: Negative Reviewed, dictated and finalized at location B.
--- OUTSIDE RECORDS SUMMARY | 2025-01-10 09:06 | XMS_ITS | Clinical Summary ---
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
--- OUTSIDE RECORDS SUMMARY | 2025-01-10 09:06 | XMS_ITS | Clinical Summary ---
Author Organization [facility] Address [address] [place] [address] Care Team Providers Care Dispatcher Motor Vehicle Name Role Phone Kunal Blount MD Primary Care Provider [phone] Source Comments [facility],non-owned Affiliates and Associated Physician Practices is amultiple site organization consisting of ambulatory clinics and hospital sitesin [place], [place], [place] and [place]. This disclosure is being madepursuant to the Care Everywhere program and may not contain all information available regarding this patient. Last updated 17.[facility] Allergies No known active allergies Medications * Be aware that medications may not be up to date on this document. Alwaysverify current medications with the patient. nystatin-triamc inolone (MYCOLOG) 249905-7.1 UNIT/GM-% cream Apply to affected area 2 times daily. 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 Gender Identity Not on file Sexual Orientation Not on file Last Filed Vital Signs Vital Sign Reading Time Taken Comments Blood Pressure 179/92 10/29/2021 5:13 AM CDT Pulse 75 10/29/2021 5:13 AM CDT Temperature 36.3 C (97.4 F) 10/29/2021 5:13 AM CDT Respiratory Rate 18 10/29/2021 5:13 AM CDT Oxygen Saturation 99% 10/29/2021 5:13 AM CDT Inhaled Oxygen Concentration - - Weight 99.8 kg (220 lb) 10/29/2021 5:13 AM CDT Height 167.6 cm (5' 6) 10/29/2021 5:13 AM CDT Body Mass Index 35.51 10/29/2021 5:13 AM CDT Plan of Treatment Health Maintenance Due Date Last Done Comments COLOGUARD (AGES 45-75) - COL ON CA SCREENING 1966 COLON MONITORING 1966 COLONOSCOPY - COLON CA SCREENING 1966 CT COLONOGRAPHY - COLON CA SCREENING 1966 Colorectal Cancer Screening 1966 FIT - COLON CA SCREENING 1966 FLEX SIG - COLON CA SCREENING 1966 LIPID TESTING 1966 MAMMOGRAM 1966 HIV SCREENING 1981 HEPATITIS C SCREENING 11/23/1984 DTAP/TDAP/TD VACCINES (1 - Tdap) 1985 HEPATITIS B VACCINE (1 of 3 - 19+ 3-dose series) 1985 PAP SMEAR 05/29/2013 05/29/2010, 02/28/2009 PNEUMOCOCCAL VACCINE 50+ (1 of 1 - PCV) 2016 ZOSTER VACCINE (1 of 2) 2016 DEPRESSION SCREENING 03/17/2024 COVID-19 VACCINE (2 - 2024-2 6 season) 2024 10/11/2020, 10/11/2020 INFLUENZA VACCINE (#1) 2024 HIB VACCINE Aged Out No longer eligi ble based on patient's age to complete this topic HPV VACCINE Aged Out No longer eligi ble based on patient's age to complete this topic MENINGOCOCCAL (Group B) VACCINE SHARED DECISION-MAKING Aged Out No longer eligible based on patient's age to complete this topic MENINGOCOCCAL GROUPS A/C/Y/W VACCINE Aged Out No longer eligible b ased on patient's age to complete this topic Procedures Procedure Name Priority Date/Time Associated Diagnosis Comments PAP IG LB RFLX HPV HR ASCU RFLX 16,18 Routine 05/29/2010 2:06 PM CDT Routine gynecological examination from Last 3 Months or Most Recently Relevant to Health Maintenance Results * PAP IG RFLX HPV ASCU RFLX 16/18 (PO REF LAB) (05/29/2010 2:06 PM CDT) Diagnosis [facility] ACCOUNT BILL Comment: NEGATIVE FOR INTRAEPITHELIAL LESION AND MALIGNANCY. REACTIVE CELLULAR CHANGES AND/OR REPAIR ARE PRESENT. Specimen Adequacy [facility] ACCOUNT BILL Comment: Satisfactory for evaluation. Endocervical and/or squamous metaplastic cells (endocervical component) are present. Clinician Provided ICD9 [facility] ACCOUNT BILL Comment:V72.31 ; Routine anesthesiologists' assistant ecological examination Performed by [facility] ACCOUNT BILL Comment:Richard Dove ytotechnologist (ASCP) Electronically Signed by [facility] ACCOUNT BILL Comment:Cuauhtemoc Duncan MD, Pa thologist Comment . [facility] ACCOUNT BILL Note [facility] ACCOUNT BILL Comment: The Pap smear is a screening test designed to aid in the detection of premalignant and malignant conditions of the uterine cervix. It is not a diagnostic procedure and should not be used as the sole means of detecting cervical cancer. Both false-positive and false-negative reports do occur. . IGLBP CPT Code Automation [facility] ACCOUNT BILL Comment: This liquid based ThinPrep(R) pap test was screened with the use of an image guided system. Reflex [facility] ACCOUNT BILL Comment: The HPV DNA reflex criteria were not met with this specimen result therefore, no HPV testing was performed. . MICROSCOPIC CYTOLOGIC EXAMINATION OF SMEAR OF SPECIMEN FROM FEMALE GENITAL TRACT PREPARED USING PAPANICOLAOU TECHNIQUE / Unknown 05/29/2010 2:06 PM CDT 05/31/2010 12:25 AM CDT Narrative [facility] ACCOUNT BILL - 06/04/2010 4:14 PM CDT LMP / Prev Treat...[id number] No. of containers..01 CYTYC Thin Prep Vial Resulting Agency Comment [facility] Curtis Borges [phone] us Bryon August MD LAB - PATHOLOGY/CYTOLOGY ORD ERABLES Final Result [facility] ACCOUNT BILL [address] [place] [address] from Last 3 Months or Most Recently Relevant to Health Maintenance Insurance [employer] Member Subscriber Plan / Payer (Ef fective for All Dates) Name:Ramesh Johnson Member ID:[id number] Relation to Subscriber:Self Name:Ramesh Johnson Subscriber ID:[id number] Payer ID:Not on file Type:O Address: [address] [employer] Care Teams Dispatcher Motor Vehicle Relationship Specialty Start Date End Date Kunal Blount MD [address] [place] [address] PCP - General Internal Medicine 10/29/21
--- OUTSIDE RECORDS SUMMARY | 2025-01-10 09:06 | XMS_ITS | Encounter Summary ---
Author Organization [facility] Address 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
--- OUTSIDE RECORDS SUMMARY | 2025-01-10 09:06 | XMS_ITS | Clinical Summary ---
Author Organization [facility] Address [address] [place] [id number] Care Team Providers Care Electronics Engineer Name Role Phone Unavailable Primary Care Provider Unavailabl e Social History Tobacco Use Types Packs/Day Years Used Date Smoking Tobacco: Never Assessed Comments Unknown Sex and Gender Information Value Date Recorded Sex Assigned at Not on file Legal Sex Female 7:48 PM CDT Gender Identity Not on file Sexual Orientation Not on file Plan of Treatment Health Maintenance Due Date Last Done Comments Cervical Cancer Screening Pa p Smear (Age 30 to 64) Every 3 Years 1966 Colorectal Cancer Screening Colonoscopy (10 Years) 1966 Annual Physical 1969 Hepatitis C 1984 DTaP, Tdap and Td Vaccines ( 1 - Tdap) 1985 Hepatitis B Vaccines (1 of 3 - 19+ 3-dose series) 1985 Cervical Cancer Screening Pa p with HPV Testing (Age 30 to 64) Every 5 Years 1996 Cervical Cancer Screening with HPV 1996 Mammogram Screening 2006 Pneumococcal Vaccine: 50+ Ye ars (1 of 1 - PCV) 2016 Zoster Vaccines (1 of 2) 2016 COVID-19 Vaccine (2024-2 6 season) 2024 Influenza Adult (#1) 2024 Hepatitis A Vaccines Aged Out No long er eligible based on patient's age to complete this topic Meningococcal B Vaccine Aged Out No l onger eligible based on patient's age to complete this topic Meningococcal Vaccine Aged Out No gudio lilia eligible based on patient's age to complete this topic RSV Immunizations Under 20 Months Aged Out No longer eligible based on patient's age to complete this topic
--- OUTSIDE RECORDS SUMMARY | 2025-01-10 09:06 | XMS_ITS | Encounter Summary ---
Author Organization [facility] Address 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
== END 2025-01-10 08:40 | disposition home or self-care (01) ==
PROVIDERS: PCP Internal Medicine
DX: Z12.31 Encounter for screening mammogram for malignant neoplasm of breast (principal)
CPT/HCPCS: 77063; 77067

== ENCOUNTER 2025-01-20 13:58 | Outpatient (CLI) | payer OTHER, SELFPAY ==
--- NOTE | ~2025-01-20 | DEXA_ITS ---
Bone Density Report Name: RAMESH JOHNSON Age: 59 Sex: Female Ethnicity: White Date of : 1965 Indication: postmenopausal; screening for osteoporosis; hysterectomy; Referring Provider: LAMONT, MIYA Cooper Study: Bone densitometry was performed. Exam Date: January 20, 2025 Accession number: [id number] Bone Density: Region BMD T-score Z-score Classification AP Spine(L1-L4) 1.219 1.6 2.8 Normal Femoral Neck (Left) 0.953 0.9 2.1 Normal Total Hip (Left) 1.340 3.3 4.1 Normal Femoral Neck (Right) 0.931 0.7 1.9 Normal Total Hip (Right) 1.240 2.4 3.3 Normal Femoral Neck Mean 0.942 0.8 2.0 Normal Total Hip Mean 1.290 2.9 3.7 Normal World Health Organization criteria for BMD impression classify patients as: Normal (T-score at or above -1.0), Osteopenia (T-score between -1.0 and -2.5), or Osteoporosis (T-score at or below -2.5). 10-year Fracture Risk: FRAX not reported because: All T-scores for Spine Total, Hip Total, Femoral Neck at or above -1.0 Clinical Information Provided by Patient: Has used the following medications: Vitamin D, Calcium, multi Has the following medical conditions: Hysterectomy Patient maximum height was 66 Menopause Age: 57 No regular weight bearing exercise Does not regularly consume dairy products Drinks caffeinated beverages Onset of menses at age 15 Number of children 2 Impression: The patient has normal bone mass. Discussion: BONE DENSITY IS ABOVE THE MINIMUM DESIRABLE LEVEL AT ALL SKELETAL SITES TESTED. This patient?s bone mineral density is above the minimum desirable level (T-score -1.0 or better) at all sites measured. The patient should follow a healthful lifestyle (good nutrition with adequate calcium and vitamin D, and appropriate weight-bearing exercise). Follow-Up: Consider repeating this study in 5 years or sooner if there is some new clinical indication. Reported by: GORDON on 01/21/2025 8:06:00 AM. Reviewed, dictated and finalized at location A.
--- OUTSIDE RECORDS SUMMARY | 2025-01-20 20:22 | XMS_ITS | Clinical Summary ---
Author Organization [facility] Address [address] [place] [address] Care Team Providers Care Lasting Machine Operator Hand Method Name Role Phone Kunal Blount MD Primary Care Provider [phone] Source Comments [facility],non-owned Affiliates and Associated Physician Practices is amultiple site organization consisting of ambulatory clinics and hospital sitesin [place], [place], [place]. This disclosure is being madepursuant to the Care Everywhere program and may not contain all information available regarding this patient. Last updated 17.[facility] Allergies No known active allergies Medications * Be aware that medications may not be up to date on this document. Alwaysverify current medications with the patient. nystatin-triamc inolone (MYCOLOG) 223861-6.1 UNIT/GM-% cream Apply to affected area 2 times daily. 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 of containers..01 CYTYC Thin Prep Vial Resulting Agency Comment [facility] Curtis Borges [phone] us Bryon August MD LAB - PATHOLOGY/CYTOLOGY ORD ERABLES Final Result [facility] ACCOUNT BILL [id number] [place] [address] from Last 3 Months or Most Recently Relevant to Health Maintenance Insurance [employer] Care Teams Lasting Machine Operator Hand Method Relationship Specialty Start Date End Date Kunal Blount MD [address] [place] [id number] PCP - General Internal Medicine 10/29/21
--- OUTSIDE RECORDS SUMMARY | 2025-01-20 20:22 | XMS_ITS | Encounter Summary ---
Author Organization [facility] Address 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
--- OUTSIDE RECORDS SUMMARY | 2025-01-20 20:22 | XMS_ITS | Clinical Summary ---
Author Organization [facility] Address [address] [place] [address] Care Team Providers Care Fusing Machine Operator Name Role Phone Unavailable Primary Care Provider [...] this topic Meningococcal Vaccine Aged Out No guido lilia eligible based on patient's age to complete this topic RSV Immunizations Under 20 Months Aged Out No longer eligible based on patient's age to complete this topic
--- OUTSIDE RECORDS SUMMARY | 2025-01-20 20:22 | XMS_ITS | Clinical Summary ---
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
--- OUTSIDE RECORDS SUMMARY | 2025-01-20 20:22 | XMS_ITS | Encounter Summary ---
Author Organization [facility] Address 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
--- OUTSIDE RECORDS SUMMARY | 2025-01-20 20:22 | XMS_ITS | Data Portability ---
Author Organization [place] [facility], Main Office Address [address] [place] [address] Assessment No assessment recorded. Plan of Treatment Reminders Order Date Submit Date Provider Last Modified By Organization Details Last Modified Time Details Appointments Any 15 2025 10:30A M Kunal Blount MD Not available Not available Not available Lab lipid panel, serum 2024 025 [facility] (Lab), [address] [place], [address], 12/01/2024 20:37:53 vitamin D, 25-hydr oxy, total, serum [email or web address] [place] [address] (Lab), [address] [place], [address], 12/08/2024 12:52:01 glycohe moglobi n, total, blood 2024 025 [facility] (Lab), [address] [place], [address], 12/01/2024 21:54:00 CMP, serum or plasma 2024 025 [facility] (Lab), [address] [place], [address], 12/01/2024 20:37:49 microal bumin, urine 2024 025 [facility] (Lab), [address] [place], [address], 12/01/2024 19:47:15 CBC w/ auto diff 2024 025 [facility] (Lab), [address] [place], [address], 12/01/2024 20:16:40 Referral None recorde d. Procedures None recorde d. Surgeries None recorde d. Imaging MAMMO, screeni ng, digital , bilater al - Please call patient to jose a mauricio [address] ([facility]), [address] [place], [address], 08/31/2024 16:44:53 DEXA [address] [facility], [address], [place], [address], 01/03/2025 13:55:38 MAMMO, screeni ng, bilater al [address] [facility], [address], [place], [address], 04/22/2024 10:43:25 DEXA [address] [facility], [address], [place], [address], 10/22/2024 12:02:25 Medication Orders metform in ER 500 mg tablet, extende d release 24 hr 2024 025 [id number], [address], [place], [address], 08/31/2024 16:21:25 Ozempic 1 mg/dose (4 mg/3 mL) subcuta neous pen injecto r 2024 025 [email or web address] [id number], [address], [place], [address], 10/29/2024 11:44:33 amoxici llin 500 mg tablet 2024 025 [email or web address] [id number], [address], [place], [address], 08/24/2024 07:41:25 Ozempic 0.25 mg or 0.5 mg (2 mg/3 mL) subcuta neous pen injecto r 2024 025 [email or web address] [id number], [address], [place], [address], 10/04/2024 15:33:35 metform in ER 500 mg tablet, extende d release 24 hr 2024 025 [email or web address] Not available 04/22/2024 09:17:19 Patient TargetsNo targets recorded. Patient Instructions Encounter Date Encounter Id Patient Instructions Last Modified By Organization Details Last Modified Time 08/18/2024 [id number] Discussed the importance of antibiotic therapy compliance. Patient needs to take medication as prescribed, including completing entire course even if symptoms improve/resolve. Discussed possible side effects of medication. Instructed patient to take medication with food to prevent stomach upset and increase daily water intake. Patient will follow up in 3-4 days if symptoms are not improving or worsen while taking antibiotics. [email or web address] Not available 08/18/2024 15:58:45 08/31/2024 [id number] Discussed medication compliance and routine follow up. Discussed healthy diet and routine exercise. Reviewed vaccine records and made recommendations as needed. Encouraged annual eye and dental exams, as well as twice yearly dental cleanings. Will check screening labs as listed below. [email or web address] Not available 08/31/2024 16:18:52 Discussed 1 skip h follow up for ozempic. All concerns and questions discussed at this time [email or web address] Not available 08/31/2024 16:19:21 10/04/2024 [id number] increase water intake and continue healthy diet choices and exercise. Tolerating dosage increase with no complaint's at this time. [email or web address] Not available 10/04/2024 15:57:37 12/01/2024 [id number] Discussed medication compliance and routine follow up. Discussed healthy diet and routine exercise. Reviewed vaccine records and made recommendations as needed. Encouraged annual eye and dental exams, as well as twice yearly dental cleanings. Will check screening labs as listed below. [email or web address] Not available 12/01/2024 09:05:07 Discussed 1 skip h follow up for anaempic. All concerns and questions discussed at this time [email or web address] Not available 12/01/2024 09:05:07 Reason for Referral None Reported. Results Created Date Observation Date Name Description Value Unit Range Abnormal Flag Note LastModifiedBy Organization Detail LastModifiedTime 04/19/1904/19/2024 BASIC METAB OLIC PANEL sodium 138 mmol/ L 137-14 5 Not Available [facility] (Lab) [address] [place], [address], 04/19/2024 20:00:05 04/19/19 25 04/19/2024 BASIC METAB OLIC PANEL potassium 3.8 mmol/ L 3.5-5. 1 Not Available [facility] (Lab) [address] [place], [address], 04/19/2024 20:00:05 04/19/19 25 04/19/2024 BASIC METAB OLIC PANEL chloride 102 mmol/ L 98-107 Not Available [facility] (Lab) [address] [place], [address], 04/19/2024 20:00:05 04/19/19 25 04/19/2024 BASIC METAB OLIC PANEL carbon dioxide 26 mmol/ L 22-30 Not Available [facility] (Lab) [address] [place], [address], 04/19/2024 20:00:05 04/19/19 25 04/19/2024 BASIC METAB OLIC PANEL anion gap 13.8 mmol/ L 14-22 low Not Available [facility] (Lab) [address] [place], [address], 04/19/2024 20:00:05 04/19/19 25 04/19/2024 BASIC METAB OLIC PANEL glucose 123 mg/dL 70-99 high Not Available [facility] (Lab) [address] [place], [address], 04/19/2024 20:00:05 04/19/19 25 04/19/2024 BASIC METAB OLIC PANEL BUN 17 mg/dL 8-19 Not Available [facility] (Lab) [address] [place], [address], 04/19/2024 20:00:05 04/19/19 25 04/19/2024 BASIC METAB OLIC PANEL creatinine 0.91 mg/dL 0.66-1 .25 Not Available [facility] (Lab) [address] [place], [address], 04/19/2024 20:00:05 04/19/19 25 04/19/2024 BASIC METAB OLIC PANEL GFR >60 Refer ence Range : [place] ge GFR Healt hy Adult : >60 mL/mi n/1.7 3 m2 Chron ic Kidne y Disea se: 15-60 mL/mi n/1.7 3 m2 Kidne y Failu re: <15/m L/min /1.73 m2 www.n iddk. nih.g ov The MDRD study equat ion has not been valid ated in child zaira <18 years of age; pregn ant women ; the elder ly >85 years of age; or in some racia l or ethni c subgr oups, such as Hisia nics. Outsi de the valid ated gm eters , estim ated GFR is less accur ate, requi ring clini leeanna judgm ent on a case- by-ca se basis . Clini leeanna inter preta tion for other races and ages must be made by the clini joshua. The MDRD study equat ion has not been valid ated for the evalu ation of serum creat inine relat ed to nutri madie l statu s or medic ation usage . For perso ns <18 years of age, a pedia tric GFR calcu lator is avail able on the F websi te: https ://thoams w.kusum yanceyy.o rg/pr ofess ional s/kdo qi/gf r_cal culat or Not Available [facility] (Lab) [address] [place], [address], 04/19/2024 20:00:05 04/19/19 25 04/19/2024 BASIC METAB OLIC PANEL calcium 9.4 mg/dL 8.4-10 .2 Not Available [facility] (Lab) [address] [place], [address], 04/19/2024 20:00:05 04/19/19 25 04/19/2024 HEMOG LOBIN A1C HA1C 5.7 % 4.0-6. 0 Diabe yves Scree jeffery Crite opal: <5.7% Consi stent with absen ce of diabe yves 5.7-6 .4% Consi stent with incre ased risk for diabe yves (pred iabet es) >OR=6 .5% Consi stent with diabe yves REFER ENCE: Diabe yves Care 2016, 39(Chapa ppl.1 ):s13 -s22 Not Available [facility] (Lab) [address] [place], [address], 04/19/2024 20:18:41 12/02/1912/01/2024 MICRO ALBUM IN RANDO M URINE microalbumin , urine <6.0 mg/L 0.0-16 .6 Not Available [facility] (Lab) [address] [place], [address], 12/01/2024 19:47:15 12/02/1912/01/2024 CBC/C OMPLE TE BLD COUNT W/DIF F white blood cells 5.7 x10'3 /uL 4.2-10 .8 Not Available [facility] (Lab) [address] [place], [address], 12/01/2024 20:16:40 12/02/19 25 12/01/2024 CBC/C OMPLE TE BLD COUNT W/DIF F red blood cells 4.23 x10'6 /uL 4.10-5 .80 Not Available [facility] (Lab) [address] [place], [address], 12/01/2024 20:16:40 12/02/19 25 12/01/2024 CBC/C OMPLE TE BLD COUNT W/DIF F hemoglobin 12.8 g/dL 13.2-1 7.0 low Not Available [facility] (Lab) [address] [place], [address], 12/01/2024 20:16:40 12/02/19 25 12/01/2024 CBC/C OMPLE TE BLD COUNT W/DIF F hematocrit 39.0 % 39.3-5 0.0 low Not Available [facility] (Lab) [address] [place], [address], 12/01/2024 20:16:40 12/02/19 25 12/01/2024 CBC/C OMPLE TE BLD COUNT W/DIF F mean red cell volume 92.2 fL 80.0-9 7.0 Not Available [facility] (Lab) [address] [place], [address], 12/01/2024 20:16:40 12/02/19 25 12/01/2024 CBC/C OMPLE TE BLD COUNT W/DIF F mean red cell hemoglobin 30.3 pg 27.0-3 3.0 Not Available [facility] (Lab) [address] [place], [address], 12/01/2024 20:16:40 12/02/19 25 12/01/2024 CBC/C OMPLE TE BLD COUNT W/DIF F mean RBC HGB concentratio n 32.8 g/dL 31.0-3 6.0 Not Available [facility] (Lab) [address] [place], [address], 12/01/2024 20:16:40 12/02/19 25 12/01/2024 CBC/C OMPLE TE BLD COUNT W/DIF F red cell distribution width 13.3 % 11.8-1 5.5 Not Available [facility] (Lab) [address] [place], [address], 12/01/2024 20:16:40 12/02/19 25 12/01/2024 CBC/C OMPLE TE BLD COUNT W/DIF F platelets 290 x10'3 /uL 150-40 0 Not Available [facility] (Lab) [address] [place], [address], 12/01/2024 20:16:40 12/02/19 25 12/01/2024 CBC/C OMPLE TE BLD COUNT W/DIF F mean platelet volume 10.2 fL 9.0-12 .4 Not Available [facility] (Lab) [address] [place], [address], 12/01/2024 20:16:40 12/02/19 25 12/01/2024 CBC/C OMPLE TE BLD COUNT W/DIF F neutrophils 55.8 % 39.0-7 2.0 Not Available [facility] (Lab) [address] [place], [address], 12/01/2024 20:16:40 12/02/19 25 12/01/2024 CBC/C OMPLE TE BLD COUNT W/DIF F lymphocytes 35.2 % 16.0-4 7.0 Not Available [facility] (Lab) [address] [place], [address], 12/01/2024 20:16:40 12/02/19 25 12/01/2024 CBC/C OMPLE TE BLD COUNT W/DIF F monocytes 6.1 % 5.0-12 .0 Not Available [facility] (Lab) [address] [place], [address], 12/01/2024 20:16:40 12/02/19 25 12/01/2024 CBC/C OMPLE TE BLD COUNT W/DIF F eosinophils 1.9 % 1.0-7. 0 Not Available [facility] (Lab) [address] [place], [address], 12/01/2024 20:16:40 12/02/19 25 12/01/2024 CBC/C OMPLE TE BLD COUNT W/DIF F basophils 0.7 % 0.0-2. 0 Not Available [facility] (Lab) [address] [place], [address], 12/01/2024 20:16:40 12/02/19 25 12/01/2024 CBC/C OMPLE TE BLD COUNT W/DIF F immature granulocytes 0.3 % 0.00-0 .50 Not Available [facility] (Lab) [address] [place], [address], 12/01/2024 20:16:40 12/02/19 25 12/01/2024 CBC/C OMPLE TE BLD COUNT W/DIF F neutrophils, absolute count 3.20 x10'3 /uL 1.5-8. 0 Not Available [facility] (Lab) [address] [place], [address], 12/01/2024 20:16:40 12/02/19 25 12/01/2024 CBC/C OMPLE TE BLD COUNT W/DIF F lymphocytes, absolute count 2.02 x10'3 /uL 1.07-3 .43 Not Available [facility] (Lab) [address] [place], [address], 12/01/2024 20:16:40 12/02/19 25 12/01/2024 CBC/C OMPLE TE BLD COUNT W/DIF F monocytes, absolute count 0.35 x10'3 /uL 0.29-0 .99 Not Available [facility] (Lab) [address] [place], [address], 12/01/2024 20:16:40 12/02/19 25 12/01/2024 CBC/C OMPLE TE BLD COUNT W/DIF F eosinophils, absolute count 0.11 x10'3 /uL 0.02-0 .53 Not Available [facility] (Lab) [address] [place], [address], 12/01/2024 20:16:40 12/02/19 25 12/01/2024 CBC/C OMPLE TE BLD COUNT W/DIF F basophils, absolute count 0.04 x10'3 /uL 0.01-0 .08 Not Available [facility] (Lab) [address] [place], [address], 12/01/2024 20:16:40 12/02/19 25 12/01/2024 CBC/C OMPLE TE BLD COUNT W/DIF F immature granulocytes ,absolute 0.02 x10'3 /uL 0.00-0 .05 Not Available [facility] (Lab) [address] [place], [address], 12/01/2024 20:16:40 12/02/19 25 12/01/2024 CBC/C OMPLE TE BLD COUNT W/DIF F nucleated red blood cells 0.0 % -0 Not Available [facility] (Lab) [address] [place], [address], 12/01/2024 20:16:40 12/02/19 25 12/01/2024 CBC/C OMPLE TE BLD COUNT W/DIF F NRBC# 0.00 x10'3 /uL Not Available [facility] (Lab) [address] [place], [address], 12/01/2024 20:16:40 12/02/19 25 12/01/2024 COMPR EHENS DENTON METAB OLIC PANEL sodium 137 mmol/ L 137-14 5 Not Available [facility] (Lab) [address] [place], [address], 12/01/2024 20:37:49 12/02/19 25 12/01/2024 COMPR EHENS DENTON METAB OLIC PANEL potassium 4.0 mmol/ L 3.5-5. 1 Not Available [facility] (Lab) [address] [place], [address], 12/01/2024 20:37:49 12/02/19 25 12/01/2024 COMPR EHENS DENTON METAB OLIC PANEL chloride 104 mmol/ L 98-107 Not Available [facility] (Lab) [address] [place], [address], 12/01/2024 20:37:49 12/02/19 25 12/01/2024 COMPR EHENS DENTON METAB OLIC PANEL carbon dioxide 27 mmol/ L 22-30 Not Available [facility] (Lab) [address] [place], [address], 12/01/2024 20:37:49 12/02/19 25 12/01/2024 COMPR EHENS DENTON METAB OLIC PANEL anion gap 10.0 mmol/ L 14-22 low Not Available [facility] (Lab) [address] [place], [address], 12/01/2024 20:37:49 12/02/19 25 12/01/2024 COMPR EHENS DENTON METAB OLIC PANEL glucose 84 mg/dL 70-99 Not Available [facility] (Lab) [address] [place], [address], 12/01/2024 20:37:49 12/02/19 25 12/01/2024 COMPR EHENS DENTON METAB OLIC PANEL BUN 16 mg/dL 8-19 Not Available [facility] (Lab) [address] [place], [address], 12/01/2024 20:37:49 12/02/19 25 12/01/2024 COMPR EHENS DENTON METAB OLIC PANEL creatinine 1.14 mg/dL 0.66-1 .25 Not Available [facility] (Lab) [address] [place], [address], 12/01/2024 20:37:49 12/02/19 25 12/01/2024 COMPR EHENS DENTON METAB OLIC PANEL GFR 49 Refer ence Range : [place] ge GFR Healt hy Adult : >60 mL/mi n/1.7 3 m2 Chron ic Kidne y Disea se: 15-60 mL/mi n/1.7 3 m2 Kidne y Failu re: <15/m L/min /1.73 m2 www.n iddk. nih.g ov The MDRD study equat ion has not been valid ated in child zaira <18 years of age; pregn ant women ; the elder ly >85 years of age; or in some racia l or ethni c subgr oups, such as Hisia nics. Outsi de the valid ated gm eters , estim ated GFR is less accur ate, requi ring clini leeanna judgm ent on a case- by-ca se basis . Clini leeanna inter preta tion for other races and ages must be made by the clini joshua. The MDRD study equat ion has not been valid ated for the evalu ation of serum creat inine relat ed to nutri madie l statu s or medic ation usage . For perso ns <18 years of age, a pedia tric GFR calcu lator is avail able on the [facility] websi te: https ://thomas w.kid jamila.o rg/pr ofess ional s/kdo qi/gf r_cal culat or Not Available [facility] (Lab) [address] [place], [address], 12/01/2024 20:37:49 12/02/19 25 12/01/2024 COMPR EHENS DENTON METAB OLIC PANEL alkaline phosphatase 45 U/L 38-126 Not Available [facility] (Lab) [address] [place], [address], 12/01/2024 20:37:49 12/02/19 25 12/01/2024 COMPR EHENS DENTON METAB OLIC PANEL alanine aminotransfe rase 20 U/L 0-35 Not Available [facility] (Lab) [address] [place], [address], 12/01/2024 20:37:49 12/02/19 25 12/01/2024 COMPR EHENS DENTON METAB OLIC PANEL aspartate aminotransfe rase 27 U/L 15-37 Not Available [facility] (Lab) [address] [place], [address], 12/01/2024 20:37:49 12/02/19 25 12/01/2024 COMPR EHENS DENTON METAB OLIC PANEL bilirubin, total 0.70 mg/dL 0.20-1 .30 Not Available [facility] (Lab) [address] [place], [address], 12/01/2024 20:37:49 12/02/19 25 12/01/2024 COMPR EHENS DENTON METAB OLIC PANEL calcium 9.9 mg/dL 8.4-10 .2 Not Available [facility] (Lab) [address] [place], [address], 12/01/2024 20:37:49 12/02/19 25 12/01/2024 COMPR EHENS DENTON METAB OLIC PANEL total protein 7.2 g/dL 6.3-8. 2 Not Available [facility] (Lab) [address] [place], [address], 12/01/2024 20:37:49 12/02/19 25 12/01/2024 COMPR EHENS DENTON METAB OLIC PANEL albumin 4.6 g/dL 3.4-5. 0 Not Available [facility] (Lab) [address] [place], [address], 12/01/2024 20:37:49 12/02/19 25 12/01/2024 COMPR EHENS DENTON METAB OLIC PANEL globulin 2.6 g/dL 2.6-4. 2 Not Available [facility] (Lab) [address] [place], [address], 12/01/2024 20:37:49 12/02/19 25 12/01/2024 COMPR EHENS DENTON METAB OLIC PANEL A/G ratio 1.8 ratio 1.0-2. 0 Not Available [facility] (Lab) [address] [place], [address], 12/01/2024 20:37:49 12/02/19 25 12/01/2024 LIPID PANEL cholesterol 146 mg/dL 140-19 9 NIH WILBERTO NSUS RECOM MENDA TION FOR PRIMITIVO STERO L: ADULT CHILD LOW RISK: <200 <170 BORDE RLINE : <200- 239 ----- HIGH RISK: >240 >200 Not Available [facility] (Lab) [address] [place], [address], 12/01/2024 20:37:53 12/02/19 25 12/01/2024 LIPID PANEL triglyceride s 147 mg/dL 0-150 NIH WILBERTO NSUS REPOR T RECOM MENDA TION FOR TRIGL YCERI VEE: ADULT CHILD LOW RISK: <150 ----- BODER LINE: 150-1 99 ----- HIGH RISK: >200 ----- Not Available [facility] (Lab) [address] [place], [address], 12/01/2024 20:37:53 12/02/1912/01/2024 LIPID PANEL HDL cholesterol 50 mg/dL 40- Not Available [facility] (Lab) [address] [place], [address], 12/01/2024 20:37:53 12/02/19 25 12/01/2024 LIPID PANEL LDL cholesterol, calculated 67 mg/dL 0-130 NIH WILBERTO NSUS REPOR T RECOM MENDA TIONS FOR LDL: ADULT CHILD LOW RISK <130 <110 (OPTI MAL LDL) <100 ----- BORDE RLINE : 130-1 59 ----- HIGH RISK: >160 >130 A TRIGL YCERI DE RESUL T >400 INVAL IDATE S THE CALCU LATIO N FOR LDL FRACT IONAT ION - THE LDL RESUL T WILL NOT BE REPOR MARCOS. Not Available [facility] (Lab) [address] [place], [address], 12/01/2024 20:37:53 12/02/1912/01/2024 VITAM IN D 25-HY DROXY [id number] 56.3 NG/mL 30-100 Vitam in D Statu s: Defic ient: <20 ng/mL Insuf ficie nt: 20-29 ng/mL Suffi cient : 30-10 0 ng/mL Not Available [facility] (Lab) [address] [place], [address], 12/01/2024 20:45:02 12/02/1912/01/2024 HEMOG LOBIN A1C HA1C 5.2 % 4.0-6. 0 Diabe yves Namita igl Crite opal: <5.7% Consi stent with absen ce of diabe yves 5.7-6 .4% Consi stent with incre ased risk for diabe yves (pred iabet es) >OR=6 .5% Consi stent with diabe yves REFER ENCE: Diabe yves Care 2016, 39(Chapa ppl.1 ):s13 -s22 Not Available [facility] (Lab) [address] [place], [address], 12/01/2024 21:54:00 01/11/2001/10/2025 MAMMnamita Arguelles, digit al, bilat eral No observ ation record ed. [email or web address] Not Available 01/11 08:49:54 Result Notes None recorded. Problems Name Problem SNOMED Code Status Onset Date Resolution Date Notes Provider Name and Address Organization Details Recorded Time Acute bronchiti s 40142357 Completed Not Available [facility] 3 15:19:55 Dizziness and giddiness 647319809 Completed Not Available [facility] 3 15:19:56 Sinusitis 10506979 Active Not Available [facility] 4 09:47:38 Urinary tract infectiou s disease 56801830 Completed Not Available [facility] 3 15:19:56 Hemorrhoi ds 04405053 Completed Not Available [facility] 3 15:19:57 Vitamin D deficienc y 77774204 Active 2017 Not Available [facility] 4 09:47:38 Vitamin deficienc y 36028735 Completed 201708/15/2017 Not Available [facility] 3 15:19:57 Obesity 812476649 Active 2018 Not Available [facility] 4 09:47:38 Allergic rhinitis 27585068 Active 2018 Not Available [facility] 4 09:47:38 Obstructi ve sleep apnea syndrome 56445928 Active 2020 Not Available [facility] 4 09:47:38 Cyst of Bartholin 's gland duct 56943046 Active 2021 Not Available [facility] 4 09:47:38 Uterine leiomyoma 81271080 Active 2021 Not Available [facility] 4 09:47:38 Essential hypertens ion 77256859 Active 2021 Not Available [facility] 4 09:47:38 Prediabet es 330673147 Completed 202204/22/2024 DONALD Morales, [place] - [facility] 5 08:16:12 Mass of left adrenal gland 13824910479 965985 Active 2023 DNOALD Moraels, [place] - [facility] 5 08:16:57 Hypertrig lyceridem ia 440598134 Active 2023 Natalie crawford RMA null, [place] - [facility] 5 08:16:02 Upper respirato ry infection 18130876 Completed 202304/22/2024 Natalie crawford RMA null, [place] - [facility] 5 08:16:40 Acute sinusitis 95405859 Completed 202304/22/2024 Natalie crawford RMA null, [place] - [facility] 5 08:15:37 Infection of skin and/or subcutane ous tissue 25630177 Completed 202304/22/2024 Natalie crawford RMA null, [place] - [facility] 5 08:16:05 Hordeolum externum of upper eyelid of left eye 39923597860 9102 Completed 202304/22/2024 Natalie crawford RMA null, [place] - [facility] 5 08:15:56 Hordeolum externum of upper eyelid of right eye 45171685500 9100 Completed 202304/22/2024 Natalie crawford RMA null, [place] - [facility] 5 08:15:59 Eruption 355827562 Completed 202304/22/2024 Natalie crawford RMA null, [place] - [facility] 5 08:15:53 Diabetes mellitus 58228684 Active 2023 Natalie crawford RMA null, [place] - [facility] 5 08:15:43 Type 2 diabetes mellitus without complicat ion 306691189 Completed 202304/22/2024 Natalie crawford RMA null, [place] - [facility] 5 08:16:43 Right upper quadrant pain 021507302 Completed 202304/22/2024 DONALD Morales, [facility] 5 08:16:46 Constipat ion 47936800 Active 2023 DONALD Morales, [facility] 5 08:15:49 Steatotic liver disease 098689563 Active 2023 Kunal Blount MD [address], [facility] [[email or web address] [address], [place], [address] , [facility] 4 09:07:16 Adrenal adenoma 582732271 Active 2024 Kunal Blount MD [address], [facility] [[email or web address] [address], [place], [address] , [facility] 5 09:16:21 Otalgia of left ear 0182794058 Active 2024 KACI Pena [address], [address] [address], [place], [address] , [facility] 5 15:48:03 Notes:Medical History: Bruxi sm Rhinosinusitis Obesity with very severe OSAHS, AHI = 98, 06/28/16, on CPAP c/o [employer] Hypertension Hypertriglyceridemia Prediabetes Left adrenal adenoma Right Bartholin's cyst Hemorrhoids Iron deficiency Vit D deficiency Right Arshad's palsy Procedure History: T&A 1986 Left 3rd finger surgery 1987 C-sections 2002, 2004 Hemorrhoidectomy 2017 Myomectomy 2021 [facility] 2022 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 Procedures Surgical History Date Name Laterality Status Provider Name and Address Organization Details Recorded Time 01/20/20 24 Advanced Care Planning completed DONALD Doll [facility] 01/20/2024 15:34:09 12/01/19 24 Advanced Care Planning completed Jannette Steel RN [facility] 12/01/2023 12:26:09 01/07/20 23 Hysterectomy completed Judi Conti MA [facility] 01/30/2023 12:27:49 Tonsillectomy completed Not Available [facility] 05/15/2022 15:15:33 section completed Not Available [facility] 05/15/2022 15:15:33 Imaging Results None recorded. Procedure Notes None recorded. Medical Equipment None Reported. Allergies No known drug allergies Medications Name Sig Start Date Stop Date Status Note LastModified by Organization Details LastModified Time cyclobenza lizzie 10 mg tablet active Not Available Not Available No t Available amoxicilli n 500 mg capsule TAKE 1 CAPSULE BY MOUTH THREE TIMES A DAY 09/24 completed Not Available Not Available Not Available atorvastat in 10 mg tablet TAKE 1 TABLET BY MOUTH EVERY DAY active Not Available Not Available No t Available azithromyc in 250 mg tablet 2 tabs po qd x 1 day then 1 tab po qd x 4 days active Not Available Not Available No t Available benzonatat e 200 mg capsule TAKE 1 CAPSULE BY MOUTH THREE TIMES A DAY NEEDED FOR COUGH 12/25 completed Not Available Not Available Not Available hydrocodon e 5 mg-acetami nophen 325 mg tablet TAKE 1 TABLET BY MOUTH EVERY 4 HOURS NEEDED FOR PAIN 01/30 completed Not Available Not Available Not Available lisinopril 20 mg tablet TAKE 1 TABLET BY MOUTH EVERY DAY 09/25 completed Not Available Not Available Not Available prednisone 20 mg tablet TAKE 2 TABLETS BY MOUTH DAILY FOR 5 DAYS 12/25 completed Not Available Not Available Not Available sulfametho xazole 800 mg-trimeth oprim 160 mg tablet TAKE 1 TABLET BY MOUTH EVERY 12 HOURS 09/24 completed Not Available Not Available Not Available triamcinol one acetonide 0.1 % topical cream APPLY THIN COAT TO AFFECTED AREA TWICE A DAY 04/22 completed Not Available Not Available Not Available amoxicilli n 500 mg tablet Take 1 tablet every 8 hours by oral route for 5 days. 08/24 completed Not Available Not Available Not Available omeprazole 10 mg capsule,de layed release 04/22 completed Not Available Not Available Not Available clindamyci n 1 % topical gel APPLY THIN COAT TO AFFECTED AREA TWICE A DAY 01/19 completed Not Available Not Available Not Available dicyclomin e 20 mg tablet 04/22 completed Not Available Not Available Not Available benzonatat e 100 mg capsule TAKE 1 TO 2 CAPSULES BY MOUTH EVERY 8 HOURS NEEDED FOR COUGH 03/28 completed Not Available Not Available Not Available oseltamivi r 75 mg capsule TAKE 1 CAPSULE BY MOUTH TWICE A DAY FOR 5 DAYS 03/28 completed Not Available Not Available Not Available lisinopril 20 mg-hydroch lorothiazi de 25 mg tablet TAKE 1 TABLET BY MOUTH EVERY DAY IN THE MORNING 2024 active LOULOU 12/01/24 NOV 03/31/25 ok to rf Not Available Not Available Not Available ergocalcif aurelia (vitamin D2) 1,250 mcg (50,000 unit) capsule TAKE ONE CAPSULE BY MOUTH ONE TIME PER WEEK 12/22 completed Not Available Not Available Not Available methylpred nisolone 4 mg tablets in a dose pack take as directed 05/26 completed Not Available Not Available Not Available Cipro 250 mg tablet Take 1 tablet every 12 hours by oral route for 5 days. 11/30 completed Not Available Not Available Not Available fluticason e propionate 50 mcg/actuat ion nasal spray,susp ension 2 sprays each nostril qd 09/24 completed as needed Not Available Not Available Not Available metformin ER 500 mg tablet,ext ended release 24 hr TAKE 1 TABLET BY MOUTH TWICE A DAY 2024 active Not Available Not Available Not Avai lable amoxicilli n 875 mg-potassi um clavulanat e 125 mg tablet Take 1 tablet twice a day by oral route for 10 days. active Not Available Not Available No t Available ciprofloxa nemesio 0.3 %-dexameth asone 0.1 % ear drops,susp ension PLACE 4 DROPS INTO AFFECTED EAR(S) TWICE A DAY FOR 7 DAYS 09/24 completed Not Available Not Available Not Available ProAir HFA 90 mcg/actuat ion aerosol inhaler Inhale 2 puffs every 4 hours by inhalati on route as needed. 05/17 completed Not Available Not Available Not Available levocetiri zine 5 mg tablet TAKE 1 TABLET BY MOUTH EVERY DAY active as needed Not Available Not Available Not Available Contour Next Test Strips USE 1 STRIP TO TEST BLOOD SUGAR ONCE DAILY active Not Available Not Available No t Available Ozempic 1 mg/dose (4 mg/3 mL) subcutaneo us pen injector INJECT 1 MG SUBCUTAN EOUSLY EVERY WEEK active Not Available Not Available No t Available Ozempic 0.25 mg or 0.5 mg (2 mg/3 mL) subcutaneo us pen injector INJECT 0.5 MG UNDER THE SKIN ONCE WEEKLY 2024 active Not Available Not Available Not [facility] labsandip Vitals Date Recorded Body height Body mass index (BMI) Body weight Body temperature Heart rate Oxygen saturation Oxygen saturation in Arterial blood by Pulse oximetry Systolic And Diastolic Provider Name and Address Organization Details Last Updated DateTime 5 167.64 cm 34.4 kg/m2 61031.1 7 g 97.1 [degF] 77 /min 97 % 97 % 118/80 mm[Hg] DONALD Alegria [facility] 5 08:42:59 Date Recorded Body height Body mass index (BMI) Body weight Body temperature Heart rate Respiratory rate Oxygen saturation Oxygen saturation in Arterial blood by Pulse oximetry Systolic And Diastolic Provider Name and Address Organization Details Last Updated DateTime 5 167.64 cm 34.1 kg/m2 79351.9 9 g 97.4 [degF] 76 /min 16 /min 97 % 97 % 118/84 mm[Hg] Minerva Patel MA [facility] 5 15:32:18 Date Recorded Body height Body mass index (BMI) Body weight Body temperature Heart rate Respiratory rate Oxygen saturation Oxygen saturation in Arterial blood by Pulse oximetry Systolic And Diastolic Provider Name and Address Organization Details Last Updated DateTime 5 167.64 cm 34.1 kg/m2 22346.9 9 g 98 [degF] 86 /min 16 /min 97 % 97 % 128/78 mm[Hg] Minerva Patel MA [facility] 5 15:31:02 Date Recorded Body height Body mass index (BMI) Body weight Body temperature Oxygen saturation Oxygen saturation in Arterial blood by Pulse oximetry Heart rate Systolic And Diastolic Provider Name and Address Organization Details Last Updated DateTime 5 167.64 cm 32.8 kg/m2 50454.2 5 g 98 [degF] 98 % 98 % 75 /min 118/78 mm[Hg] Nicole pena [facility] 5 15:36:02 Date Recorded Body height Body mass index (BMI) Body weight Oxygen saturation Oxygen saturation in Arterial blood by Pulse oximetry Heart rate Body temperature Systolic And Diastolic Provider Name and Address Organization Details Last Updated DateTime 5 167.64 cm 32.4 kg/m2 31153.0 7 g 98 % 98 % 78 /min 97.8 [degF] 118/78 mm[Hg] Nicole pena [place] - [facility] [place] [employer] [facility] 5 09:10:37 Social History Question Answer Notes LastModified by Organizat ion Details LastModified Time Tobacco Smoking Status Never Smoker Not Available [employer] 05/15/2022 15:15:18 Do You Have An Advance Directive? No [id number] Information not available 05/15/2022 What Is Your Level Of Caffeine Consumption? Moderate [id number] Information not available 05/15/2022 In The 14 Days Before Symptom Onset, Have You Had Close Contact With A Laboratory-confir med COVID-19 While That Case Was Ill? No [id number] Information not available 05/15/2022 In The 14 Days Before Symptom Onset, Have You Had Close Contact With A Person Who Is Under Investigation For COVID-19 While That Person Was Ill? No [id number] Information not available 05/15/2022 Do You Have An Electrostatic Air Filter? No Information not available 01/30/2023 Do You Have A Humidifier? No Information not available 01/30/2023 Do You Have A Medical Power Of Nuclear Plant Technical Advisor? No MIGRATION.[id number] Information not available 05/15/2022 Do You Have Moisture Problems In Your Home? No Information not available 01/30/2023 What Was The Date Of Your Most Recent Tobacco Screening? 12/01/2023 [email or web address] Information not available 12/01/2023 Do You Have Any Pets? Yes Information not available 01/30/2023 What Is Your Relationship Status? [id number] Information not available 05/15/2022 Do You Use Your Seat Belt Or Car Seat Routinely? Yes MIGRATION.[id number] Information not available 05/15/2022 Do You Have Smoke And Carbon Monoxide Detectors In Your Home? Yes Smoke Detectors Information not available 01/30/2023 Are You Passively Exposed To Smoke? No Smokes Outside Information not available 01/30/2023 Do You Use Sunscreen Routinely? Yes Information not available 01/30/2023 Has Tobacco Cessation Counseling Been Provided? No MIGRATION.[id number] Information not available 05/15/2022 Have You Recently Traveled Abroad? No MIGRATION.42547 [id number] Information not available 05/15/2022 Sex: Unknown Functional Status Question Answer Note LastModified by Organizat ion Details LastModified Time Do you use any illicit or recreational drugs? No [id number] Information not available 05/15/2022 Do you or have you ever used any other forms of tobacco or nicotine? No MIGRATION.[id number] Information not available 05/15/2022 What is your level of alcohol consumption? None MIGRATION.[id number] 1955 Information not available 05/15/2022 Have you been exposed to chemicals or toxins? 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 Family History Relationship Description Onset Age of this Age Resolved Age Notes LastModified by Organization Details LastModified Time Father Hypertensive disorder [id number] Not available 05/15/2022 15:15:35 Father Heart disease [id number] Not available 05/15/2022 15:15:36 Mother Malignant neoplasm of kidney [id number] Not available 05/15/2022 15:15:36 Brother Diabetes mellitus [email or web address] Not available 2022 14:08:20 Sister Malignant neoplasm of rectum [email or web address] Not available 2022 14:08:48 Sister Malignant neoplasm of vagina [email or web address] Not available 2022 14:08:57 Medical History No medical history recorded. Gynecological HistoryNo gynecological history recorded. Obstetrics History GPAL:G 0 P 0 0 0 0 Immunizations Vaccine Type Date Status Note Provider Nam e and Address Organization Details Recorded Time COVID-19 vaccine, vector-nr, rS-ChAdOx1, PF, 0.5 mL 10/11/2020 completed Not Available [facility] 23:29:47 Past Encounters Encounter ID Performer Location Encounter Start Date Encounter Closed Date Diagnosis/Indication Diagnosis SNOMED-CT Code Diagnosis ICD10 Code Diagnosis IMO Codes Diagnosis Note [id number] [facility] Pulmon[facility] Tomi Thapa [address] [place] [address] 11/08/2020 00:00:00 11/08/2020 13:58:27 [id number] Kunal Blount MD [facility] [address] [place] [address] 12/25/2021 00:00:00 12/25/2021 14:50:10 [id number] Kunal Blount MD [facility] [address] [place] [address] 01/28/2022 00:00:00 01/28/2022 16:14:36 [id number] Kunal Blount MD [facility] [address] [place] [address] 05/28/2022 16:06:54 05/28/2022 17:01:01 Adult health examination 897584874 Z00.00 Colonoscop y- NEVER, wants to waitMammog martin- DUEDEXA- NEVERFLU- declinesPn eumonia- NEVERCOVID - Has had 1 (J&J) Essential hypertension 53314797 I10 getting better Vitamin D deficiency 347 54784 E55.9 otc Obesity 427886441 E66.9 advise dto watch diet Allergic rhinitis 369881 04 J30.9 on meds Abdominal pain 00419165 R10.9 Mass of le ft adrenal gland 4885797243 2132727 E27.8 Screening for malignant neoplasm of colon 702245422 Z12.11 Prediabetes 962115067 R7 3.03 diet and weight reduction discussed [id number] Kunal Blount MD [facility] [address] [place] [address] 09/30/2022 16:23:34 09/30/2022 16:49:51 Adult health examination 922832718 Z00.00 Colonoscop y- due , was orderedMam mogram- DUEDEXA- NEVERFLU- declinesPn eumonia- NEVERCOVID - Has had 1 (J&J) Essential hypertension 88564933 I10 watch Vitamin D deficiency 347 49005 E55.9 otc Obesity 136532194 E66.9 advised to watch diet Allergic rhinitis 973146 04 J30.9 on meds Mass of le ft adrenal gland 7703529112 8170657 E27.8 Prediabetes 034086398 R7 3.03 diet and weight reduction discussed Uterine leiomyoma 953506 05 D25.9 seeing gyne Screening mammography 24 682182 Z12.31 Screening for malignant neoplasm of colon 880878423 Z12.11 [id number] Dacia Griffin, [employer] Pulmonolo gy [place] [address] [place] [address] 10/23/2022 15:18:21 10/23/2022 17:42:05 Obstructive sleep apnea syndrome 15587322 G47.33 Study 06/2016 with AHI 98.3PLMS 1.2/hourMa chine set 08/05/16Do wnload today with 100% use greater than 4 hours.She is on CPAP 8 cm H2oHer median leak is 5.4AHI 0.7ESS 4OSA is well correctedE ncouraged 100% compliance with all sleepFollo w with PCM for labsAdvise d good sleep habits and patterns:- Set a goal for at least 7 to 8 hours of sleep time per day.-Use the bed mainly for sleep and to go to bed only when tired. If unable to fall asleep after 30 minutes, patient should get out of bed but should not engage in any activity that requires sustained mental alertness. -Maintain a regular bedtime and wake-up time even on weekends or days off of work.-Avoi d excessive naps during the daytime. If a nap is necessary, limit it to no more than 30minutes. -Minimize environmen betzaida noise, bright lights, and extremes in bedroom temperatur e.-Avoid alcohol, caffeinate d beverages, and nicotine products for at least 6 hours prior to bedtime.-A void strenuous exercise and large meals for at least 4 hours prior to bedtime.Di scussed supply cleaning and reordering Order for new machine todayFU for compliance as required by insurance [id number] Wade Deras MD [facility] [place]mon[place] [address] [address] 01/30/2023 12:12:29 01/31/2023 08:39:03 Obstructive sleep apnea syndrome 47671597 G47.33 [id number] Kunal Blount MD [facility] [address] [place] [address] 03/28/2023 12:14:31 03/28/2023 13:24:59 Adult health examination 387924197 Z00.00 Colonoscop y- 11/25/2022 , NEXT IN 3 YRSHystere ctomy- 01/06/23Ma mmogram- DUE , WILLINGDEX A- NEVERFLU- declinedPn eumonia- NEVERCOVID - Has had 1 (J&J) Essential hypertension 54104643 I10 on meds Vitamin D deficiency 347 14735 E55.9 otc Obesity 551028919 E66.9 advised to watch diet Allergic rhinitis 192079 04 J30.9 on meds Mass of le ft adrenal gland 6848724573 6607568 E27.8 not changing, no need for f/u unless gets symptoms Prediabetes 142412039 R7 3.03 diet and weight reduction discussed Uterine leiomyoma 916251 05 D25.9 s/p hysterecto my Hypertriglyceridemia 302 200319 E78.1 watch diet Upper resp iratory infection 21516703 J06.9 [id number] Kunal Blount MD [facility] [address] [place] [address] 08/06/2023 14:16:29 08/06/2023 15:19:38 Infection of skin and/or subcutaneous tissue 80840567 L08.9 Hordeolum externum of upper eyelid of right eye 6263985237 41315 H00.011 warm compresses [id number] Kunal Blount MD [facility] [address] [place] [address] 09/25/2023 15:53:36 09/25/2023 16:45:09 Adult health examination 391521810 Z00.00 Colonoscop y- 11/25/2022 , NEXT IN 3 YRSHystere ctomy- 01/06/23Ma mmogram- DUE, WILLINGDEX A- NEVERFLU- declinedPn eumonia- NEVERCOVID - Has had 1 (J&J) Essential hypertension 95802851 I10 add HCTZ Vitamin D deficiency 347 24696 E55.9 otc Obesity 198549404 E66.9 advised to watch diet Allergic rhinitis 469300 04 J30.9 on meds Mass of le ft adrenal gland 3313880384 3908415 E27.8 not changing, no need for f/u unless gets symptoms Prediabetes 502366146 R7 3.03 diet and weight reduction discussed Uterine leiomyoma 891829 05 D25.9 s/p hysterecto my Hypertriglyceridemia 302 412059 E78.1 watch diet Screening mammography 24 274529 Z12.31 Eruption 614031271 R21 Postmenopausal state 764 77452 Z78.0 Long-term drug therapy 935605789 Z79.026 [id number] Kunal Blount MD [facility] [address] [place] [address] 12/01/2023 09:10:19 12/01/2023 09:55:09 Diabetes mellitus 39871768 E11.9 diet discussed, info material given, lose weight, exercisest art medsGlucom eter givenstart on statins next time [facility] examination 427077509 Z00.00 Colonoscop y- 11/25/2022 , NEXT IN 3 YRSHystere ctomy- 01/06/23Ma mmogram- DUE, WILLINGDEX A- NEVERFLU- declinedPn eumonia- NEVERCOVID - Has had 1 (J&J) Depression screening 171 674179 Z13.31 Normal bod y mass index 47546605 Z68.38 [id number] Kunal Blount MD [facility] [address] [place] [address] 01/20/2024 15:28:58 01/20/2024 16:22:03 Diabetes mellitus 64014491 E11.9 diet discussed, lose weight, exercisest art meds OZEMPIC to control DM and lose weightstar t statins [facility] examination 153922165 Z00.00 Colonoscop y- 11/25/2022 , NEXT IN 3 YRSHystere ctomy- 01/06/23Ma mmogram- - Still has the order from last timeDEXA- NEVER - Still has the OrderFLU- declinedPn eumonia- NEVERCOVID - Has had 1 (J&J) Essential hypertension 95320814 I10 better Vitamin D deficiency 347 20481 E55.9 otc Obesity 338390979 E66.9 advised to watch diet Allergic rhinitis 872032 04 J30.9 on meds Mass of le ft adrenal gland 8505243109 0287013 E27.8 not changing, no need for f/u unless gets symptoms Uterine leiomyoma 501790 05 D25.9 s/p hysterecto my Hypertriglyceridemia 302 628465 E78.1 watch diet [id number] Kunal Blount MD [facility] [address] [place] [address] 02/19/2024 15:20:26 02/19/2024 16:15:47 Right upper quadrant pain 988324821 R10.11 Constipation 86589543 K5 9.00 to take stool softeners [id number] Kunal Blount MD [facility] [address] [place] [address] 04/22/2024 08:37:23 04/22/2024 09:22:19 Diabetes mellitus 82669483 E11.9 diet discussed, lose weight,^ ozempic 0.65 mg weekdecrea se metformin 500 qd Adult heal th examination 544494866 Z00.00 Colonoscop y- 11/25/2022 , NEXT IN 3 YRSHystere ctomy- 01/06/23Ma mmogram- - REORDEREDD EXA- REORDEREDP neumonia- NEVERCOVID - Has had 1 (J&J) Essential hypertension 80593986 I10 better Vitamin D deficiency 347 89832 E55.9 otc Obesity 845677154 E66.9 advised to watch diet Allergic rhinitis 500684 04 J30.9 on meds Uterine leiomyoma 023161 05 D25.9 s/p hysterecto my Hypertriglyceridemia 302 608448 E78.1 watch diet Screening mammography 24 804937 Z12.31 Screening for osteoporosis 987016618 Z13.820 Adrenal adenoma 06365629 8 D35.00 benign Family his tory of coronary arteriosclerosis 860425366 Z82.[address] calcium score [id number] Kunal Blount MD [facility] Internal [address] [place] [address] 08/18/2024 15:15:26 08/18/2024 16:06:48 Otalgia of left ear 5077809687 H92.02 [id number] Kunal Blount MD [facility] Internal [address] [place] [address] 08/31/2024 15:24:46 08/31/2024 16:31:33 Diabetes mellitus 45001380 E11.9 Continue to work on diet and exercise as discussed. Screening mammography 24 961632 Z12.31 8635666 Screening for osteoporosis 812161632 Z13.442 [id number] Essential hypertension 40094847 I10 Under control with medication s Obesity 930513309 E66.9 Discussed- working on diet and exercise at thist time Vitamin D deficiency 347 59748 E55.9 Does not currently take any medicaiton s [id number] Kunal Blount MD [facility] [address] [place] [address] 10/04/2024 15:26:14 10/04/2024 16:15:24 Diabetes mellitus 88586937 E11.9 Continue to work on diet and exercise as discussed. Increase water intake as well. Overall doing well and losing weight with diet improvemen t's. Wellness scheduled in November- come to office fastingref ill already sent [id number] Kunal Blount MD [facility] Internal [address] [place] [address] 12/01/2024 08:57:28 12/01/2024 09:55:09 Adult health examination 744147682 Z00.00 Z13.220 Colonoscop y- 11/25/2022 , NEXT IN 3 YRSHystere ctomy- 01/06/23Ma mmogram- - REORDERED, did noot getDEXA- REORDERED, did not getPneumon ia- NEVERCOVID - Has had 1 (J&J) Diabetes mellitus 694431 09 E11.9 Essential hypertension 38179025 I10 under control Vitamin D deficiency 347 09897 E55.9 otc Obesity 066916682 E66.9 advised to watch diet, start doing exercise Allergic rhinitis 915152 04 J30.9 on meds prn Mass of le ft adrenal gland 3827683269 3488255 E27.8 not changing, no need for f/u unless gets symptoms Uterine leiomyoma 399646 05 D25.9 s/p hysterecto my Hypertriglyceridemia 302 024532 E78.1 watch diet Health Concerns Section Related Observation LastModified by Organization Detai ls LastModified Time None Recorded Concern Status LastModified by Organization Details LastModified Time None Recorded Advance Directives Directive N: Payers Insurance Date Sequence Insurance Name Policy Number Policy Jenkins Covered Member ID Jenkins Member ID Guarantor Name 12/01/2024 [facility] Lisbeth Veras SELF SELF Lisbeth Veras 12/01/2024 1 [employer] - OPEN ACCESS [id number] Lisbeth Veras [id number] OI [id number] SOI Lisbeth Veras Notes Date Note Type Note Provider Name and Address Organization Details Recorded Time 5 text/html ROS as noted in the HPI She is here today for a routine follow up, complaint to meds back in Feb had some abd. pain Had US gallbladder and CT done. Abd.pain is better but not goneheart conditions recently in the family and is concerned and has questions Diabetes- Accu checks good.NOW 5.7 ( 04/2024)Last eye exam- due, discussedMeds- Metformin ER 500mg BID, Ozempic 0.25mg Hypertension- Controlled with medsMeds- Lisinopril/HCTC 20mg/25mg daily Allergic Rhinitis- Uses flonase and Levocetirizine as neededSleep apnea- compliant to CPAPObesity- has lost 4 lbVit D def- on otcH/O Fibroid tumors s/p d&c, seeing gyne left adrenal mass seen on CT , benign adenoma Fatty liver- ultra sound in 03/09, Ct Kunal Blount MD [address], [place], [address], [place] [facility] 04/22/2024 09:20:34 5 text/html Ear Pain Brief HPIReported by PatientHPIFor quality, patient reportsaching pain. For context, patient reportsrecent uribut reportsno recent trauma,no recent ear infection,no recent swimming,no immunocompromise,no dental problems,no recent airplane travel,no scuba diving, andnon-smoker. For associated symptoms, patient reportsnasal congestionandmuffled hearing. For location, patient reportsleft. For onset/timing, patient reportsnew onset. For severity, patient reportsno fever,able to perform daily activities, andno interference with sleep.ROS as noted in the HPI KACI Pena [address], [address], [place], [address], [facility] 08/18/2024 15:59:05 5 text/html ROS as noted in the HPI Patient is a 58 year old female that presents to the office for 4 month office visit. Patient reports that she is doing well overall and has been working on diet and exercise. She reports that she feels she needs ozempic increased and feels shes hit a plateau. Overall she reports she is doing well. Patient denies chest pains, shortness of breath, headaches, or abdominal pains at this time. Increase ozempic to 1 abs- labs in 4 months - next week mammogram- REORDERED- Andersoncolonoscopy- 22304-Ibuuakkf due in [place]- partial hysterectomy 1.5 years prior, advised to see MELT DOWN FURNACE OPERATOR or PICKER MACHINE OPERATOR Katy Blanco in office for well womens examDEXA- REORDERED-AndersonHRT- NONE-BP- once a monthSmoke- noFlu-no awareCovid-no awareTdap- aware, Labs: check tsh/t4, lipid panel, Vitamin D, microalbumin for yearlyat next visit KACI Pena [address], [place], [address], [email or web address] 08/31/2024 16:21:27 5 text/html ROS as noted in the HPI Patient is 58y/o female who is here to discuss medication compliance and overall health after dose increase. Patient is currently on ozempic and had dose increased to 1 mg. Patient reports she is doing well and is still eating a well balance diet and continuing exercise. She has lost total of 8lbs since last visit. Patient denies chest pains, shortness of breath, abdominal pains, N/V/D. Increase water intake- mild constipation, takes senna as needed tolerating dosage increase ALINE Pena-Richard [address], [facility] [[email or web address] [address], [place], [address], [email or web address] 10/04/2024 15:58:28 5 text/html ROS as noted in the HPI pt is here for routine f/u Pt is fasting HealthlinkDiabetes- Accu checks not checking, A1c 5.9 04/19/24Last eye exam- dueMeds- Metformin ER 500mg BID, ozempic 0.5 mg wkly Hypertension- Controlled with medsMeds- Lisinopril/HCTC 20mg/25mg daily Allergic Rhinitis- Uses flonase and Levocetirizine as needed when season changesSleep apnea- compliant to CPAPObesity- has lost 2 lbsVit D def- on otcH/O Fibroid tumors s/p d&c, seeing gyne left adrenal mass seen on CT , likely adenoma Kunal Blount MD [address], [facility] [[email or web address]] [address], [place], [place], [id number], [email or web address] 12/01/2024 09:32:20 OBGyn Episode No OBEpisode recorded.
== END 2025-01-20 13:59 | disposition home or self-care (01) ==
LOC: CHSIMG 14:01
PROVIDERS: PCP Internal Medicine
DX: Z78.0 Asymptomatic menopausal state (principal)
CPT/HCPCS: 77080